=== PATIENT | female | born 1990 | race African-American/Black ===

== ENCOUNTER 2020-01-17 13:24 | Inpatient (IN) ==
[2020-01-17] MEDS ORDERED: OXYTOCIN 30 UNITS/500 ML BAG IV PRN (16:05)
--- NOTE | 2020-01-17 16:24 | History & Physical Report ---
Date of Service January 17, 2020 Assessment & Plan (1) IUGR (intrauterine growth restriction): 29 yo at 37.5 wks sent fro [facility] for IUGR, abn dopplers of UA, elevated S/D ratio VSS Afebrile FHR reassuring GBS neg Coronavirus unknown Plan to admit, monitor, labs, nasal swab Cervical ripening with Cervidil Patient declined drug use to me and but admitted to use 2 weeks ago to her nurse Agrees for UDS Admission and Anticipated Discharge Date Admission Date: January 17, 2020 History of Present Illness Primary Care Provider: NO PCP Patient is a 29 yo at 37.5 wks sent from [facility] for IOL at term due to IUGR, EFW 2nd %ile, UA S/D ratio elevated She has no complaints No ctxs/ LOF/VB +FM No MENDOZA/ change in vision/ N&V/ Fever/ chills/ cough or sore throat Her has been complicated IUGR, abn UA dopplers h/o smoking, quit 2 weeks ago Class III obesity Allergies Allergy/AdvReac Type Severity Reaction Status Date / Time No Known Allergies Allergy Verified 01/17/20 15:41 Home Medications Home Medications Medication Instructions Recorded Confirmed Type PNV cmb#95-ferrous fumarate-FA 1 tab PO DAILY 01/17/20 01/17/20 History [] Tylenol 1,000 mg PO DAILY 01/17/20 01/17/20 History Patient History Medical History No known health problems Surgical History H/O wisdom tooth extraction Social History Smoking Status: Never smoker Hx Alcohol Use: No Hx Substance Use: Yes Last Used Substance: Days (ago) Last Used Substance Other:: per patient used within the last 2 weeks. 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) Vital Signs (Past 12 Hours) Vital Signs Temp Pulse Resp BP 01/17/20 15:41 36.7 C 68 18 123/81 01/17/20 15:39 36.7 C 68 18 123/81
[2020-01-17] MEDS ORDERED: DINOPROSTONE 10 MG INSERT PV ONE (16:30)
[2020-01-17 16:39] LABS: Hemoglobin 12.1 g/dL (12.0-16.0); Mean Corpuscular Hemoglobin 27.4 pg (25-34); Mean Corpuscular Volume 83.7 fL (80-100); Mean Platelet Volume 9.8 fL (7.4-10.4); Platelet Count 170 K/uL (130-400); RDW Coefficient of Variation 13.6 % (11.5-14.5); RDW Standard Deviation 41.3 fL (36.4-46.3); Red Blood Count 4.42 M/uL (4.2-5.4); White Blood Count 7.15 K/uL (4.8-10.8)
[2020-01-17 16:40] LABS: Mean Corpuscular Hgb Conc 32.7 g/dL (32-36)
[2020-01-17 17:04] LABS: Albumin Level 2.3 gm/dl (3.4-5.0); BUN Creatinine Ratio 16.4 (10-20); Calcium 9.1 mg/dl (8.5-10.1); Creatinine Clr Calc Pharmacy 146.2 ml/min; Est GFR (African American) 108.9; Potassium 4.3 mmol/L (3.5-5.1)
[2020-01-17 17:07] LABS: Albumin Globulin Ratio 0.6 (0.9-2); Bilirubin,Total 0.2 mg/dl (0.2-1); Total Protein 6.3 gm/dl (6.4-8.2)
[2020-01-17 19:19] LABS: Amphetamines+Metham, Urine Neg (Neg); Barbiturates, Urine Neg (Neg); Benzodiazepine, Urine Neg (Neg); Cocaine, Urine Neg (Neg); MDMA (Ecstacy), Urine Neg (Neg); Methadone, Urine Neg (Neg); Opiate, Urine Neg (Neg); Phencyclidine, Urine Neg (Neg)
--- NOTE | 2020-01-17 19:35 | Anesthesiology Consultation ---
Date of Service January 17, 2020 Assessment & Plan ASA ASA3 Proposed Anesthesia Anesthesia Type: Labor Epidural Risk / Benefits Reviewed With: PT / POA / Parent / Guardian, Accepts Plan and Informed Consent Obtained History Height/Weight Height: 5 ft 9 in Weight: 136.531 kg Allergies Allergy/AdvReac Type Severity Reaction Status Date / Time No Known Allergies Allergy Verified 01/17/20 15:41 Medications Home Medications Medication Instructions Recorded Confirmed Last Taken PNV cmb#95-ferrous fumarate-FA 1 tab PO DAILY 01/17/20 01/17/20 01/17/20 07:00 [] Tylenol 1,000 mg PO DAILY 01/17/20 01/17/20 01/17/20 07:00 Past Medical History Medical History No known health problems Exercise / Class Metabolic Activity II 4-5 Yardwork/Stairs/Walk up hill Past Surgical History Surgical History H/O wisdom tooth extraction Past Anesthesia History No Hx of Anesthesia Complications and No Family Hx of Anesthesia Complications History of PONV No Hx of PONV and No Hx of Motion Sickness Social History Smoking Status: Never smoker Hx Alcohol Use: No Hx Substance Use: Yes substance use type: marijuana Last Used Substance: Days (ago) Last Used Substance Other:: per patient used within the last 2 weeks. Review of Systems denies fever/cough/ colds/ chest pain/ SOB/ IFEOMA denies IFEOMA Physical Exam Vital Signs Last Vital Signs Temp 36.6 C 01/17/20 19:47 Pulse 66 01/17/20 19:47 Resp 18 01/17/20 19:47 BP 125/75 01/17/20 19:47 ENMT Mouth: no TMJ abnormality and no dentition abnormality Thyromental Distance: > or= 3.5 Finger Breadths Mallampati Class: II Neck neck extension not limited Respiratory normal respiratory effort; no respiratory distress Auscultation: lungs clear to auscultation bilaterally Cardiovascular Rate/Rhythm: regular rate and regular rhythm Neurologic moves all extremities Psychiatric Orientation: alert and oriented x 3 Testing Laboratory Results 01/17/20 16:22 01/17/20 16:22
[2020-01-17] MEDS ORDERED: NALOXONE HCL 1 MG in SODIUM CHLORIDE 0.9% 1000ML 1,000 ML IV PRN (20:09)
[2020-01-17] MEDS ORDERED: fentaNYL 2MCG/ML ROPIVACAINE 1.25MG/ML 100 ML BAG EPI PRN (20:09)
[2020-01-17] MEDS ORDERED: ONDANSETRON INJ 2 MG/ML 2 ML VIAL IV PRN (20:09)
[2020-01-17] MEDS ORDERED: NALOXONE HCL 0.4 MG/1 ML VIAL/CARP IV PRN (20:09)
[2020-01-17] MEDS ORDERED: diphenhydrAMINE 50 MG/ML VIAL IV PRN (20:09)
[2020-01-17] MEDS ORDERED: ePHEDrine sulfate 50 MG/ML AMP IV PRN (20:09)
[2020-01-17] MEDS ORDERED: BUTORPHANOL TARTRATE 1 MG/ML VIAL IV PRN (23:19)
--- NOTE | 2020-01-17 23:22 | Obstetrical Progress Note ---
Date of Service January 17, 2020 Assessment & Plan Admission and Anticipated Discharge Date Admission Date: January 17, 2020 Subjective Patient is asleep FHR had been reassuring No ctxs Continue with cervical ripening Lab Results 01/17/20 01/17/20 01/17/20 Range/Units 16:20 16:20 16:22 WBC 7.15 (4.8-10.8) K/uL RBC 4.42 (4.2-5.4) M/uL Hgb 12.1 (12.0-16.0) g/dL Hct 37.0 (37-47) % MCV 83.7 (80-100) fL MCH 27.4 (25-34) pg MCHC 32.7 (32-36) g/dL RDW Std Deviation 41.3 (36.4-46.3) fL RDW Coeff of Naga 13.6 (11.5-14.5) % Plt Count 170 (130-400) K/uL MPV 9.8 (7.4-10.4) fL Sodium (136-145) mmol/L Potassium (3.5-5.1) mmol/L Chloride (98-107) mmol/L Carbon Dioxide (21-32) mmol/L Anion Gap (3-11) BUN (7-18) mg/dl Creatinine (0.6-1.2) mg/dl Est Cr Clr Drug Dosing ml/min Est GFR ( Amer) Est GFR (Non-Af Amer) BUN/Creatinine Ratio (10-20) Glucose (70-99) mg/dl Calcium (8.5-10.1) mg/dl Total Bilirubin (0.2-1) mg/dl AST (15-37) U/L ALT (12-78) U/L Alkaline Phosphatase (45-117) U/L Total Protein (6.4-8.2) gm/dl Albumin (3.4-5.0) gm/dl Globulin (2.5-4.0) gm/dl Albumin/Globulin Ratio (0.9-2) Urine Opiates Screen (Neg) Ur Methadone, Qual (Neg) Urine Barbiturates (Neg) Ur Phencyclidine (PCP) (Neg) U Amphetamin/Meth Scrn (Neg) MDMA (Ecstasy) Screen (Neg) U Benzodiazepines Scrn (Neg) Ur Cocaine Metabolite (Neg) U Marijuana (THC) Screen (Neg) COVID-19 [facility] SARS-CoV-2, RNA, NAAT NEGATIVE (NEGATIVE) 01/17/20 01/17/20 Range/Units 16:22 18:43 WBC (4.8-10.8) K/uL RBC (4.2-5.4) M/uL Hgb (12.0-16.0) g/dL Hct (37-47) % MCV (80-100) fL MCH (25-34) pg MCHC (32-36) g/dL RDW Std Deviation (36.4-46.3) fL RDW Coeff of Naga (11.5-14.5) % Plt Count (130-400) K/uL MPV (7.4-10.4) fL Sodium 138 (136-145) mmol/L Potassium 4.3 (3.5-5.1) mmol/L Chloride 110 H (98-107) mmol/L Carbon Dioxide 21 (21-32) mmol/L Anion Gap 6.0 (3-11) BUN 14 (7-18) mg/dl Creatinine 0.83 (0.6-1.2) mg/dl Est Cr Clr Drug Dosing 146.2 ml/min Est GFR ( Amer) 108.9 Est GFR (Non-Af Amer) 94.0 BUN/Creatinine Ratio 16.4 (10-20) Glucose 82 (70-99) mg/dl Calcium 9.1 (8.5-10.1) mg/dl Total Bilirubin 0.2 (0.2-1) mg/dl AST 10 L (15-37) U/L ALT 22 (12-78) U/L Alkaline Phosphatase 128 H (45-117) U/L Total Protein 6.3 L (6.4-8.2) gm/dl Albumin 2.3 L (3.4-5.0) gm/dl Globulin 4.0 (2.5-4.0) gm/dl Albumin/Globulin Ratio 0.6 L (0.9-2) Urine Opiates Screen Neg (Neg) Ur Methadone, Qual Neg (Neg) Urine Barbiturates Neg (Neg) Ur Phencyclidine (PCP) Neg (Neg) U Amphetamin/Meth Scrn Neg (Neg) MDMA (Ecstasy) Screen Neg (Neg) U Benzodiazepines Scrn Neg (Neg) Ur Cocaine Metabolite Neg (Neg) U Marijuana (THC) Screen Pos H (Neg) COVID-19 Eval Order SARS-CoV-2, RNA, NAAT (NEGATIVE) Results & Data ([facility]) Vital Signs (Past 12 Hours) Vital Signs Temp Pulse Resp BP 01/17/20 21:21 36.6 C 60 18 130/75 01/17/20 19:47 36.6 C 66 18 125/75 01/17/20 15:41 36.7 C 68 18 123/81 01/17/20 15:39 36.7 C 68 18 123/81
[2020-01-18] MEDS: LACTATED RINGER'S 1,000 ML IV PRN ×2 (00:56→04:18)
--- NOTE | 2020-01-18 07:47 | Obstetrical Progress Note ---
Date of Service January 18, 2020 Assessment & Plan Admission and Anticipated Discharge Date Admission Date: January 17, 2020 Subjective Patient feels well no complaints No ctxs/ LOF/VB +FM's VE 1CM/ 30%/ -4, posterior FHR 140's reactive [place] no ctxs Patient desires breakfast Will sign out to Dr Martinez Results & Data ([facility]) Vital Signs (Past 12 Hours) Vital Signs Temp Pulse Resp BP 01/18/20 07:29 67 118/63 01/18/20 03:40 36.7 C 70 18 131/78 01/18/20 00:04 36.6 C 60 18 131/82 01/17/20 21:21 36.6 C 60 18 130/75 01/17/20 19:47 36.6 C 66 18 125/75
[2020-01-18] MEDS ORDERED: DINOPROSTONE 10 MG INSERT PV ONE (10:49)
--- NOTE | 2020-01-18 11:10 | Obstetrical Progress Note ---
Date of Service January 18, 2020 Assessment & Plan Admission and Anticipated Discharge Date Admission Date: January 17, 2020 Physical Exam Genitourinary: Manual OB Exam: + cervical dilation fingertip, + cervical effacement 50% and + station high OB Exam Monitor Tracing: + category I (Cervidil 10 mg placed vaginally to continue cervical ripening) Results & Data ([facility]) Vital Signs (Past 12 Hours) Vital Signs Temp Pulse Resp BP 01/18/20 07:29 67 118/63 01/18/20 03:40 36.7 C 70 18 131/78 01/18/20 00:04 36.6 C 60 18 131/82
[2020-01-18] MEDS ORDERED: ONDANSETRON INJ 2 MG/ML 2 ML VIAL IV PRN (13:13)
[2020-01-18] MEDS ORDERED: ONDANSETRON INJ 2 MG/ML 2 ML VIAL ONE (13:14)
[2020-01-19] MEDS: miSOPROStoL 50 MCG TAB PO SCH ×2 (01:46→06:02)
--- NOTE | 2020-01-19 08:05 | Obstetrical Progress Note ---
Date of Service January 19, 2020 Assessment & Plan Admission and Anticipated Discharge Date Admission Date: January 17, 2020 Subjective Met pt and reviewed care Induction day #3 for IUGR Received Cytotec x 3 and Cervidil SROM this AM discussed Pitocin augmentation Pt is agreeable Results & Data ([facility]) Vital Signs (Past 12 Hours) Vital Signs Temp Pulse Resp BP 01/19/20 07:47 64 143/75 H 01/19/20 05:20 68 144/90 H 01/19/20 05:18 36.7 C 18 01/19/20 01:48 36.5 C 77 18 119/58 L 01/18/20 23:12 36.9 C 63 18 129/71
[2020-01-19] MEDS: LACTATED RINGER'S 1,000 ML IV PRN ×3 (09:46→16:02)
[2020-01-19] MEDS ORDERED: OXYTOCIN 30 UNITS/500 ML BAG IV PRN (09:52)
--- NOTE | 2020-01-19 10:08 | Obstetrical Progress Note ---
Date of Service January 19, 2020 Assessment & Plan Admission and Anticipated Discharge Date Admission Date: January 17, 2020 Subjective called to evaluate pt with variables Oxygen given position changes VE: 3/50/-2 No Umbilical cord palpated during exam Ctx 1-4 scalp electrode placed FH improved Results & Data ([facility]) Vital Signs (Past 12 Hours) Vital Signs Temp Pulse Resp BP 01/19/20 07:50 36.7 C 16 01/19/20 07:47 64 143/75 H 01/19/20 05:20 68 144/90 H 01/19/20 05:18 36.7 C 18 01/19/20 01:48 36.5 C 77 18 119/58 L 01/18/20 23:12 36.9 C 63 18 129/71
[2020-01-19] MEDS ORDERED: fentaNYL citrate 100 MCG/2 ML VIAL ONE ×3 (10:19→17:10)
[2020-01-19] MEDS ORDERED: SODIUM CHLORIDE 0.9% INJ 10 ML VIAL ONE (10:19)
[2020-01-19] MEDS ORDERED: BUPIVACAINE 0.25% 30 ML VIAL ONE (10:19)
[2020-01-19] MEDS ORDERED: ePHEDrine sulfate 50 MG/ML AMP ONE (10:19)
[2020-01-19] MEDS ORDERED: fentaNYL 2MCG/ML ROPIVACAINE 1.25MG/ML 100 ML BAG EPI ONE (10:20)
[2020-01-19] MEDS ORDERED: NALOXONE HCL 0.4 MG/1 ML VIAL/CARP IV PRN ×2 (11:10→20:15)
[2020-01-19] MEDS ORDERED: NALOXONE HCL 1 MG in SODIUM CHLORIDE 0.9% 1000ML 1,000 ML IV PRN ×2 (11:10→20:15)
[2020-01-19] MEDS ORDERED: ONDANSETRON INJ 2 MG/ML 2 ML VIAL IV PRN ×2 (11:10→18:18)
[2020-01-19] MEDS ORDERED: fentaNYL 2MCG/ML ROPIVACAINE 1.25MG/ML 100 ML BAG EPI PRN (11:10)
[2020-01-19] MEDS ORDERED: ePHEDrine sulfate 50 MG/ML AMP IV PRN ×2 (11:10→20:15)
[2020-01-19] MEDS ORDERED: diphenhydrAMINE 50 MG/ML VIAL IV PRN ×3 (11:10→20:15)
--- NOTE | 2020-01-19 11:10 | Anesthesiology Consultation ---
Date of Service January 19, 2020 Assessment & Plan (1) Encounter for pre-operative examination: Chart Review Chart Review: Patient NOT seen in Pre Admission Testing and Acceptable Risk for Labor Epidural Consults Requested none ASA ASA2 Proposed Anesthesia Anesthesia Type: Labor Epidural Risk / Benefits Reviewed With: PT / POA / Parent / Guardian, Accepts Plan and Informed Consent Obtained History Height/Weight Height: 5 ft 9 in Weight: 136.531 kg Allergies Allergy/AdvReac Type Severity Reaction Status Date / Time No Known Allergies Allergy Verified 01/17/20 15:41 Medications Home Medications Medication Instructions Recorded Confirmed Last Taken PNV cmb#95-ferrous fumarate-FA 1 tab PO DAILY 01/17/20 01/17/20 01/17/20 07:00 [] Tylenol 1,000 mg PO DAILY 01/17/20 01/17/20 01/17/20 07:00 Active Medications Generic Name Dose Route Start Last Admin Trade Name Freq PRN Reason Stop Dose Admin Lactated Ringer's 1,000 mls @ 125 mls/hr 01/17/20 16:05 01/19/20 10:04 Lr IV 01/19/20 16:04 999 mls/hr .Q8H PRN Infusion L&D Protocol Protocol Misoprostol 50 mcg 01/19/20 02:00 01/19/20 06:02 Misoprostol 50 Mcg Tab PO 02/18/20 01:59 50 mcg Q4H IVETTE Administration NPO Date Last Intake of Fluids: 01/19/20 Time Last Intake of Fluids: 06:00 Date Last Intake of Solids: 01/18/20 Time Last Intake of Solids: 21:00 Past Medical History Medical History No known health problems Exercise / Class Metabolic Activity II 4-5 Yardwork/Stairs/Walk up hill Past Surgical History Surgical History H/O wisdom tooth extraction Past Anesthesia History No Hx of Anesthesia Complications and No Family Hx of Anesthesia Complications History of PONV No Hx of PONV and No Hx of Motion Sickness Social History Smoking Status: Never smoker Hx Alcohol Use: No Hx Substance Use: Yes substance use type: marijuana Last Used Substance: Days (ago) Last Used Substance Other:: per patient used within the last 2 weeks. Physical Exam Vital Signs Last Vital Signs Temp 37.2 C 01/19/20 11:04 Pulse 64 01/19/20 11:07 Resp 22 01/19/20 09:30 BP 134/76 01/19/20 11:07 Pulse Ox 100 01/19/20 11:06 ENMT Mouth: no dentition abnormality Thyromental Distance: > or= 3.5 Finger Breadths Mallampati Class: II Neck normal visual inspection Respiratory normal respiratory effort Auscultation: lungs clear to auscultation bilaterally Cardiovascular Rate/Rhythm: regular rate and regular rhythm Psychiatric Orientation: alert Testing Laboratory Results 01/17/20 16:22 01/17/20 16:22
--- NOTE | 2020-01-19 12:27 | Obstetrical Progress Note ---
Date of Service January 19, 2020 Assessment & Plan Admission and Anticipated Discharge Date Admission Date: January 17, 2020 Subjective Called to evaluate pt with dc On arrival she was on her left side with oxygen FHR in the 80;s with scalp electrode VE; 3/50/high Ctx 3-4 fetus responded to scalp IVF inc to 999 Turb given fetus responded to scalp and return to 140 baseline OR Notified Plan discussed resuscitation with pt and spouse this was the second episode if it recurs will proceed to c/sec P and spouse agree with buckley Yun cath placed in bladder Results & Data ([facility]) Vital Signs (Past 12 Hours) Vital Signs Temp Pulse Resp BP Pulse Ox 01/19/20 12:17 94 H 100 01/19/20 12:12 98 H 100 01/19/20 12:08 144 H 161/104 H 01/19/20 12:07 98 H 100 01/19/20 12:01 77 100 01/19/20 11:57 83 93 01/19/20 11:56 67 100 01/19/20 11:54 70 161/93 H 01/19/20 11:51 71 100 01/19/20 11:49 66 111/75 01/19/20 11:48 60 142/72 H 01/19/20 11:46 71 100 01/19/20 11:41 66 100 01/19/20 11:36 60 139/68 100 01/19/20 11:31 62 100 01/19/20 11:29 62 133/77 01/19/20 11:26 59 L 134/68 100 01/19/20 11:21 69 148/81 H 100 01/19/20 11:16 63 100 01/19/20 11:14 66 135/62 01/19/20 11:11 70 100 01/19/20 11:09 65 135/75 01/19/20 11:07 64 134/76 01/19/20 11:06 64 100 01/19/20 11:05 61 136/74 01/19/20 11:04 37.2 C 71 154/79 H 01/19/20 11:01 69 100 01/19/20 10:56 84 100 01/19/20 10:51 69 100 01/19/20 10:46 73 100 01/19/20 10:41 75 100 01/19/20 10:36 79 100 01/19/20 10:31 64 100 01/19/20 09:30 36.7 C 22 01/19/20 07:50 36.7 C 16 01/19/20 07:47 64 143/75 H 01/19/20 05:20 68 144/90 H 01/19/20 05:18 36.7 C 18 01/19/20 01:48 36.5 C 77 18 119/58 L
[2020-01-19] MEDS ORDERED: TERBUTALINE SULFATE 1 MG/ML VIAL ONE (12:52)
--- NOTE | 2020-01-19 16:00 | Obstetrical Progress Note ---
Date of Service January 19, 2020 Assessment & Plan Admission and Anticipated Discharge Date Admission Date: January 17, 2020 Subjective Pt doing well CAT II strip VE; Unchanged discussed c/sec with pt pt agrees risk and benefits of surgery discussed consent signed will proceed to c/sec Results & Data ([facility]) Vital Signs (Past 12 Hours) Vital Signs Temp Pulse Resp BP Pulse Ox 01/19/20 15:57 72 98 01/19/20 15:53 78 141/81 H 01/19/20 15:52 79 98 01/19/20 15:47 75 97 01/19/20 15:42 85 96 01/19/20 15:41 75 94 01/19/20 15:37 71 110/64 96 01/19/20 15:32 71 96 01/19/20 15:27 73 96 01/19/20 15:23 74 115/68 01/19/20 15:22 73 98 01/19/20 15:17 72 97 01/19/20 15:12 81 98 01/19/20 15:08 74 115/68 01/19/20 15:07 73 99 01/19/20 15:02 84 99 01/19/20 14:59 36.8 C 16 01/19/20 14:57 80 100 01/19/20 14:52 71 139/79 99 01/19/20 14:47 91 H 100 01/19/20 14:42 76 100 01/19/20 14:38 75 128/74 01/19/20 14:37 74 100 01/19/20 14:32 80 100 01/19/20 14:27 77 100 01/19/20 14:24 77 121/75 01/19/20 14:22 78 100 01/19/20 14:17 79 100 01/19/20 14:12 80 100 01/19/20 14:07 78 117/70 100 01/19/20 14:02 79 100 01/19/20 13:59 20 01/19/20 13:57 82 100 01/19/20 13:52 81 110/65 99 01/19/20 13:47 87 98 01/19/20 13:42 86 98 01/19/20 13:39 84 122/75 01/19/20 13:37 90 100 01/19/20 13:32 87 100 01/19/20 13:27 93 H 100 01/19/20 13:23 93 H 131/76 01/19/20 13:22 89 100 01/19/20 13:17 84 100 01/19/20 13:12 101 H 100 01/19/20 13:07 87 129/66 100 01/19/20 13:02 36.8 C 91 H 16 100 01/19/20 12:57 85 100 01/19/20 12:52 85 139/66 100 01/19/20 12:47 88 100 01/19/20 12:42 85 100 01/19/20 12:38 89 134/60 01/19/20 12:37 93 H 100 01/19/20 12:32 113 H 100 01/19/20 12:27 85 100 01/19/20 12:23 90 135/88 01/19/20 12:22 89 100 01/19/20 12:17 94 H 100 01/19/20 12:12 98 H 100 01/19/20 12:11 20 01/19/20 12:08 144 H 161/104 H 01/19/20 12:07 98 H 100 01/19/20 12:01 77 100 01/19/20 11:57 83 93 01/19/20 11:56 67 100 01/19/20 11:54 70 161/93 H 01/19/20 11:51 71 100 01/19/20 11:49 66 111/75 01/19/20 11:48 60 142/72 H 01/19/20 11:46 71 100 01/19/20 11:41 66 100 01/19/20 11:36 60 139/68 100 01/19/20 11:31 62 100 01/19/20 11:29 62 133/77 01/19/20 11:26 59 L 134/68 100 01/19/20 11:21 69 148/81 H 100 01/19/20 11:16 63 100 01/19/20 11:14 66 135/62 01/19/20 11:11 70 100 01/19/20 11:09 65 135/75 01/19/20 11:07 64 134/76 01/19/20 11:06 64 100 01/19/20 11:05 61 136/74 01/19/20 11:04 37.2 C 71 154/79 H 01/19/20 11:01 69 100 01/19/20 10:56 84 100 01/19/20 10:51 69 100 01/19/20 10:46 73 100 01/19/20 10:41 75 100 01/19/20 10:36 79 100 01/19/20 10:31 64 100 01/19/20 09:30 36.7 C 22 01/19/20 07:50 36.7 C 16 01/19/20 07:47 64 143/75 H 01/19/20 05:20 68 144/90 H 01/19/20 05:18 36.7 C 18
[2020-01-19] MEDS ORDERED: CITRIC ACID/SODIUM CITRATE 15 ML UDC PO SCH (16:15)
[2020-01-19] MEDS ORDERED: MoRPHine SULFATE PF 1 MG/ML 10 ML AMP/VIAL ONE (16:17)
[2020-01-19] MEDS ORDERED: LIDOCAINE/EPINEPHRINE 2% 1:200,000 20 ML SDV ONE (16:20)
[2020-01-19] MEDS ORDERED: OXYTOCIN 10 UNITS/ML VIAL ONE ×2 (16:20→16:29)
--- NOTE | 2020-01-19 16:22 | Communication Note ---
Date of Service: January 19, 2020 cessarian section called by OB for intol to labor. epidural working well, will use this for c section
[2020-01-19 16:23] LABS: Basophils # (auto) 0.01 K/uL (0-0.2); Basophils % (auto) 0.1 %; Eosinophils # (auto) 0.01 K/uL (0-0.5); Eosinophils % (auto) 0.1 %; Hematocrit (blood only) 36.2 % (37-47); Hemoglobin 12.1 g/dL (12.0-16.0); Immature Granulocytes # (auto) 0.03 K/uL (0.00-0.02); Immature Granulocytes % (auto) 0.3 %; Lymphocytes # (auto) 1.86 K/uL (1.2-3.4); Lymphocytes % (auto) 16.9 %; Mean Corpuscular Hemoglobin 27.6 pg (25-34); Mean Corpuscular Volume 82.5 fL (80-100); Mean Platelet Volume 9.9 fL (7.4-10.4); Monocytes # (auto) 0.84 K/uL (0.11-0.59); Monocytes % (auto) 7.7 %; Neutrophils # (auto) 8.23 K/uL (1.4-6.5); Neutrophils % (auto) 74.9 %; Platelet Count 162 K/uL (130-400); RDW Coefficient of Variation 13.5 % (11.5-14.5); RDW Standard Deviation 40.8 fL (36.4-46.3); Red Blood Count 4.39 M/uL (4.2-5.4); White Blood Count 10.98 K/uL (4.8-10.8)
[2020-01-19 16:31] LABS: Mean Corpuscular Hgb Conc 33.4 g/dL (32-36)
[2020-01-19] MEDS ORDERED: miSOPROStoL 200 MCG TAB ONE (16:58)
[2020-01-19] MEDS ORDERED: KETOROLAC 30 MG/ML VIAL ONE (17:27)
[2020-01-19] MEDS ORDERED: ONDANSETRON INJ 2 MG/ML 2 ML VIAL ONE (17:34)
[2020-01-19] MEDS ORDERED: PROMETHAZINE HCL 25 MG in SODIUM CHLORIDE 0.9% 50 ML IV PRN (18:18)
[2020-01-19] MEDS ORDERED: SENNA 8.6 MG TAB PO PRN (18:18)
[2020-01-19] MEDS ORDERED: DIPHTHERIA/TETANUS/PERTUSSIS 0.5 ML SYR/VIAL IM ONE (18:18)
[2020-01-19] MEDS ORDERED: HYDROCORTISONE ACETATE 25 MG SUPP PR PRN (18:18)
[2020-01-19] MEDS ORDERED: SUPERCREAM 0.870% 15 GM JAR EXT PRN (18:18)
[2020-01-19] MEDS ORDERED: MAGNESIUM HYDROXIDE SUSP 30 ML UDC PO PRN (18:18)
[2020-01-19] MEDS ORDERED: diphenhydrAMINE Capsule 25 MG CAP PO PRN (18:18)
[2020-01-19] MEDS ORDERED: BENZOCAINE 20% AER SPR 82.5 GM CAN EXT PRN (18:18)
--- NOTE | 2020-01-19 18:22 | Post Operative Brief Note ---
Immediate Post Op Note v1 Date of Surgery January 19, 2020 Pre & Post Diagnosis Operation Date: 01/19/20 16:30 <No data on this case meets the specified criteria> I identified the patient and participated in the time-out.: Yes Procedure Operation Date: 01/19/20 16:30 <No data on this case meets the specified criteria> Surgeon Saad Morales MD Methodologist tom Estimated Blood Loss 500 Findings Consistent with Post-Op Diagnosis
[2020-01-19] MEDS ORDERED: LACTATED RINGER'S 1,000 ML IV SCH (18:30)
[2020-01-19 18:31] LABS: Base Excess Cord Venous Blood -3.8 mEq/L (-7.7-1.9); Cord Venous Blood HCO3 22 mmol/L (18.4-26.8); Cord Venous Blood PCO2 41 mmHg (30.4-57.2); Cord Venous Blood PO2 23 mmHg (14.1-43.3); Cord Venous Blood pH 7.34 (7.20-7.44)
[2020-01-19 18:38] LABS: Base Excess Cord Arterial Bld -3.3 mEq/L (-9-1.8); CO2 Cord Arterial Blood 49 mmHg (39.1-73.5); HCO3 Cord Arterial Blood 24 mmol/L (19.7-28.5); PO2 Cord Arterial Blood 13 mmHg (4.1-31.7)
[2020-01-19 18:41] LABS: O2 Saturation Cord Venous Bld < 60.0 % (<68)
[2020-01-19 18:43] LABS: Oxygen Sat Cord Arterial Blood < 60.0 % (<60)
--- NOTE | 2020-01-19 19:23 | Operative Report (OR) ---
DATE OF OPERATION: 01/19/2020 INDICATION FOR SURGERY: This is a 29-year-old G4, P3 with at term with IUGR. The patient underwent induction of labor x3 days. She dilated to 3 cm and fetus began to experience intolerance to labor. Fetus had 2 episodes of spontaneous decelerations, which required resuscitation. Fetus also now experiencing repetitive deep variables with late decelerations. Decision was therefore made to perform a section. The patient agreed, consent was signed. The patient went on to have a section. PREOPERATIVE DIAGNOSES: 1. at term. 2. Intrauterine growth restriction. 3. intolerance to labor. POSTOPERATIVE DIAGNOSES: 1. at term. 2. Intrauterine growth restriction. 3. intolerance to labor. PROCEDURE: section. SURGEON: Saad Morales MD. RN SCHOOL: Vishal Martinez MD. ANESTHESIA: Epidural. ESTIMATED BLOOD LOSS: 500 mL. INTRAVENOUS FLUIDS: 1600 mL. URINE OUTPUT: 400 mL of clear urine at the end of the procedure. FINDINGS: Live in cephalic presentation with 2 nuchal cords. Both of these were tight nuchal cords. Uterus, adnexa appeared grossly normal. Rest of the abdominal pelvic exam is unremarkable. COMPLICATIONS: None. DRAINS: Yun catheter. PATHOLOGY: Placenta, cord blood and cord gas. DISPOSITION: Stable to recovery room. DESCRIPTION OF PROCEDURE: The patient was taken to the operating room where she was prepped and draped in normal sterile fashion. Timeout was called. A Pfannenstiel incision was made and carried down to the fascia. Fascia was incised in the midline and extended laterally on both sides. Fascia was sharply dissected off the rectus abdominus muscle. Peritoneum was identified and entered sharply. An Damien retractor was placed in the abdomen, a transverse incision was made on the uterus after the vesicouterine peritoneum was sharply dissected off the lower segment of the uterus. was delivered. A nuchal cord x2 was reduced. Cord was clamped and cut and handed over to the pediatric team. Details of is in the pediatric record. Placenta was manually removed after cord gases obtained. Uterus was closed in 2 layers with Vicryl stitch. There was good hemostasis. Copious amount of irrigation used to irrigate the abdomen. The Damien retractor was removed. Rectus abdominis muscle and peritoneum were loosely approximated with plain suture. Fascia was closed in a running fashion with PDS x2. SubQ space was reapproximated with plain suture and skin was closed with 4-0 Monocryl. All instruments were removed from the vagina and accounted for x2 including sponges, needles and retractors. The patient is stable in recovery. I attest to the content of the Intraoperative Record and any orders documented therein. Any exception s are noted below.
[2020-01-19 19:31] LABS: Marijuana Quant, GCMS Urine 649 ng/mL (<5)
[2020-01-19] MEDS ORDERED: SODIUM CHLORIDE 0.9% 1000ML 1,000 ML IV SCH (20:15)
[2020-01-19] MEDS ORDERED: PROMETHAZINE HCL 6.25 MG in SODIUM CHLORIDE 0.9% 50 ML IV PRN (20:15)
[2020-01-19] MEDS ORDERED: MoRPHine SULFATE PF 1 MG/ML 10 ML AMP/VIAL INT SPINAL ONE (20:15)
[2020-01-19] MEDS ORDERED: MoRPHine SULFATE 2 MG/ML CARP IV PRN (20:15)
[2020-01-19] MEDS ORDERED: HYDROmorphone INJ 0.5 MG/0.5 ML SYR IV PRN (20:15)
[2020-01-19] MEDS ORDERED: LACTATED RINGER'S 500 ML IV PRN (20:15)
[2020-01-19] MEDS ORDERED: NALOXONE HCL 0.08 MG in SYRINGE 1.8 ML IV PRN (20:15)
[2020-01-19] MEDS ORDERED: DC INTRASPINAL MORPHINE SCH (20:15)
[2020-01-19] MEDS ORDERED: NO NARCOTICS OR SEDATIVES SCH (20:15)
[2020-01-19] MEDS: MEPERIDINE HCL 25 MG/ML CARP/VIAL IV PRN (20:30)
[2020-01-19] MEDS: DOCUSATE SODIUM 100 MG CAP PO SCH (20:31)
[2020-01-19] MEDS: SIMETHICONE 80 MG CHEW PO SCH (20:31)
--- NOTE | 2020-01-19 20:36 | Anesthesiology Progress Note ---
Date of Service January 19, 2020 Anesthesia Post Procedure Vital Signs Vital Signs: Temp Pulse Resp BP Pulse Ox 01/19/20 20:04 64 135/78 01/19/20 20:01 72 98 01/19/20 19:56 70 99 01/19/20 19:54 70 141/77 H 01/19/20 19:51 64 97 01/19/20 19:46 65 97 01/19/20 19:44 62 142/77 H 01/19/20 19:41 65 100 01/19/20 19:36 70 98 01/19/20 19:34 64 132/70 01/19/20 19:33 16 01/19/20 19:31 69 98 01/19/20 19:26 68 98 01/19/20 19:24 69 146/83 H 01/19/20 19:21 70 96 01/19/20 19:16 74 96 01/19/20 19:15 77 94 01/19/20 19:14 78 154/81 H 01/19/20 19:11 84 96 01/19/20 19:06 74 96 01/19/20 19:04 80 149/83 H 01/19/20 19:03 36.6 C 16 01/19/20 19:01 84 95 01/19/20 18:56 82 144/70 H 96 01/19/20 18:53 20 01/19/20 18:49 90 87 L 01/19/20 18:46 89 90 01/19/20 18:44 80 142/65 H 99 01/19/20 18:43 20 01/19/20 18:39 82 100 01/19/20 18:34 90 151/87 H 97 01/19/20 18:33 20 01/19/20 18:29 89 100 01/19/20 18:28 81 93 01/19/20 18:24 83 151/87 H 98 01/19/20 18:23 20 01/19/20 18:22 82 90 01/19/20 18:19 84 100 01/19/20 18:14 81 151/86 H 100 01/19/20 18:13 20 01/19/20 18:11 88 91 01/19/20 18:09 75 63 L 01/19/20 18:05 78 146/79 H 93 01/19/20 18:04 78 99 01/19/20 18:03 37.1 C 20 01/19/20 16:31 76 99 01/19/20 16:26 72 100 01/19/20 16:24 73 123/73 01/19/20 16:21 69 97 01/19/20 16:16 73 99 01/19/20 16:15 82 93 01/19/20 16:11 75 100 01/19/20 16:09 81 133/103 H 01/19/20 16:02 78 98 01/19/20 15:57 72 98 01/19/20 15:53 78 141/81 H 01/19/20 15:52 79 98 01/19/20 15:47 75 97 01/19/20 15:42 85 96 01/19/20 15:41 75 94 01/19/20 15:37 71 110/64 96 01/19/20 15:32 71 96 01/19/20 15:27 73 96 01/19/20 15:23 74 115/68 01/19/20 15:22 73 98 01/19/20 15:17 72 97 01/19/20 15:12 81 98 01/19/20 15:08 74 115/68 01/19/20 15:07 73 99 01/19/20 15:02 84 99 01/19/20 14:59 36.8 C 16 01/19/20 14:57 80 100 01/19/20 14:52 71 139/79 99 01/19/20 14:47 91 H 100 01/19/20 14:42 76 100 01/19/20 14:38 75 128/74 01/19/20 14:37 74 100 01/19/20 14:32 80 100 01/19/20 14:27 77 100 01/19/20 14:24 77 121/75 01/19/20 14:22 78 100 01/19/20 14:17 79 100 01/19/20 14:12 80 100 01/19/20 14:07 78 117/70 100 01/19/20 14:02 79 100 01/19/20 13:59 20 01/19/20 13:57 82 100 01/19/20 13:52 81 110/65 99 01/19/20 13:47 87 98 01/19/20 13:42 86 98 01/19/20 13:39 84 122/75 01/19/20 13:37 90 100 01/19/20 13:32 87 100 01/19/20 13:27 93 H 100 01/19/20 13:23 93 H 131/76 01/19/20 13:22 89 100 01/19/20 13:17 84 100 01/19/20 13:12 101 H 100 01/19/20 13:07 87 129/66 100 01/19/20 13:02 36.8 C 91 H 16 100 01/19/20 12:57 85 100 01/19/20 12:52 85 139/66 100 01/19/20 12:47 88 100 01/19/20 12:42 85 100 01/19/20 12:38 89 134/60 01/19/20 12:37 93 H 100 01/19/20 12:32 113 H 100 01/19/20 12:27 85 100 01/19/20 12:23 90 135/88 01/19/20 12:22 89 100 01/19/20 12:17 94 H 100 01/19/20 12:12 98 H 100 01/19/20 12:11 20 01/19/20 12:08 144 H 161/104 H 01/19/20 12:07 98 H 100 01/19/20 12:01 77 100 01/19/20 11:57 83 93 01/19/20 11:56 67 100 01/19/20 11:54 70 161/93 H 01/19/20 11:51 71 100 01/19/20 11:49 66 111/75 01/19/20 11:48 60 142/72 H 01/19/20 11:46 71 100 01/19/20 11:41 66 100 01/19/20 11:36 60 139/68 100 01/19/20 11:31 62 100 01/19/20 11:29 62 133/77 01/19/20 11:26 59 L 134/68 100 01/19/20 11:21 69 148/81 H 100 01/19/20 11:16 63 100 01/19/20 11:14 66 135/62 01/19/20 11:11 70 100 01/19/20 11:09 65 135/75 01/19/20 11:07 64 134/76 01/19/20 11:06 64 100 01/19/20 11:05 61 136/74 01/19/20 11:04 37.2 C 71 154/79 H 01/19/20 11:01 69 100 01/19/20 10:56 84 100 01/19/20 10:51 69 100 01/19/20 10:46 73 100 01/19/20 10:41 75 100 01/19/20 10:36 79 100 01/19/20 10:31 64 100 01/19/20 09:30 36.7 C 22 01/19/20 07:50 36.7 C 16 01/19/20 07:47 64 143/75 H 01/19/20 05:20 68 144/90 H 01/19/20 05:18 36.7 C 18 01/19/20 01:48 36.5 C 77 18 119/58 L 01/18/20 23:12 36.9 C 63 18 129/71 Pain Intensity Abdomen: Pain Intensity: 6 Transfer of Care Handoff Completed per policy Notes Mental Status: alert / awake / arousable Patient Amnestic to Procedure: Yes Nausea / Vomiting: adequately controlled Pain: adequately controlled Airway Patency, RR, SpO2: stable & adequate BP & HR: stable & adequate Hydration State: stable & adequate Anesthetic Complications: no major complications apparent
[2020-01-19] MEDS: ONDANSETRON INJ 2 MG/ML 2 ML VIAL IV PRN (21:07)
[2020-01-20] MEDS: KETOROLAC 30 MG/ML VIAL IV PRN ×2 (01:53→09:52)
[2020-01-20] MEDS: OXYTOCIN 20 UNITS in LACTATED RINGER'S 1,000 ML IV SCH ×2 (01:54→09:40)
[2020-01-20 06:10] LABS: Basophils # (auto) 0.01 K/uL (0-0.2); Basophils % (auto) 0.1 %; Eosinophils # (auto) 0.01 K/uL (0-0.5); Eosinophils % (auto) 0.1 %; Hematocrit (blood only) 32.7 % (37-47); Hemoglobin 10.4 g/dL (12.0-16.0); Immature Granulocytes # (auto) 0.02 K/uL (0.00-0.02); Immature Granulocytes % (auto) 0.2 %; Lymphocytes # (auto) 1.78 K/uL (1.2-3.4); Mean Corpuscular Hemoglobin 26.7 pg (25-34); Mean Corpuscular Hgb Conc 31.8 g/dL (32-36); Mean Corpuscular Volume 84.1 fL (80-100); Mean Platelet Volume 10.4 fL (7.4-10.4); Monocytes # (auto) 1.09 K/uL (0.11-0.59); Monocytes % (auto) 10.4 %; Neutrophils # (auto) 7.59 K/uL (1.4-6.5); Neutrophils % (auto) 72.2 %; Platelet Count 166 K/uL (130-400); RDW Coefficient of Variation 13.6 % (11.5-14.5); RDW Standard Deviation 40.7 fL (36.4-46.3); Red Blood Count 3.89 M/uL (4.2-5.4)
[2020-01-20] MEDS: ONDANSETRON INJ 2 MG/ML 2 ML VIAL IV PRN (06:13)
[2020-01-20] MEDS: MEPERIDINE HCL 25 MG/ML CARP/VIAL IV PRN ×2 (06:16→06:27)
--- NOTE | 2020-01-20 09:48 | Obstetrical Progress Note ---
Date of Service January 20, 2020 Assessment & Plan Admission and Anticipated Discharge Date Admission Date: January 17, 2020 Subjective Patient is seen and examined. She feels well, no complaints. Pain is under control with IV meds. Not OOB yet Tolerating clear diet with out N&V Flatus neg BM neg Bleeding is minimal No fever/ chills/ CP/ SOB/ N&V/ Leg pain Breast feeding without problems Vital Signs Temp Pulse Resp BP Pulse Ox 01/20/20 07:20 16 96 01/20/20 06:25 16 96 01/20/20 05:35 16 99 01/20/20 05:00 16 99 01/20/20 04:00 18 97 01/20/20 03:15 36.7 C 70 16 146/88 H 99 01/20/20 01:50 16 97 01/20/20 00:15 18 99 01/19/20 23:40 37.6 C H 64 18 141/89 H 100 01/19/20 22:35 18 97 Lab Results 01/17/20 01/17/20 01/17/20 Range/Units 16:20 16:20 16:22 WBC 7.15 (4.8-10.8) K/uL RBC 4.42 (4.2-5.4) M/uL Hgb 12.1 (12.0-16.0) g/dL Hct 37.0 (37-47) % MCV 83.7 (80-100) fL MCH 27.4 (25-34) pg MCHC 32.7 (32-36) g/dL RDW Std Deviation 41.3 (36.4-46.3) fL RDW Coeff of Naga 13.6 (11.5-14.5) % Plt Count 170 (130-400) K/uL MPV 9.8 (7.4-10.4) fL Immature Gran % (Auto) % Neut % (Auto) % Lymph % (Auto) % Gooding % (Auto) % Eos % (Auto) % Baso % (Auto) % Neut # (Auto) (1.4-6.5) K/uL Lymph # (Auto) (1.2-3.4) K/uL Gooding # (Auto) (0.11-0.59) K/uL Eos # (Auto) (0-0.5) K/uL Baso # (Auto) (0-0.2) K/uL Immature Gran # (Auto) (0.00-0.02) K/uL Cord ABG pH (7.1-7.38) Cord ABG pCO2 (39.1-73.5) mmHg Cord ABG pO2 (4.1-31.7) mmHg Cord ABG HCO3 (19.7-28.5) mmol/L Cord ABG Base Excess (-9-1.8) mEq/L Cord ABG O2 Sat (<60) % Cord VBG pH (7.20-7.44) Cord VBG pCO2 (30.4-57.2) mmHg Cord VBG pO2 (14.1-43.3) mmHg Cord VBG HCO3 (18.4-26.8) mmol/L Cord VBG Base Excess (-7.7-1.9) mEq/L Cord VBG O2 Sat (<68) % Barometric Pressure mm/Hg Blood Gas Comments Sodium (136-145) mmol/L Potassium (3.5-5.1) mmol/L Chloride (98-107) mmol/L Carbon Dioxide (21-32) mmol/L Anion Gap (3-11) BUN (7-18) mg/dl Creatinine (0.6-1.2) mg/dl Est Cr Clr Drug Dosing ml/min Est GFR ( Amer) Est GFR (Non-Af Amer) BUN/Creatinine Ratio (10-20) Glucose (70-99) mg/dl Calcium (8.5-10.1) mg/dl Total Bilirubin (0.2-1) mg/dl AST (15-37) U/L ALT (12-78) U/L Alkaline Phosphatase (45-117) U/L Total Protein (6.4-8.2) gm/dl Albumin (3.4-5.0) gm/dl Globulin (2.5-4.0) gm/dl Albumin/Globulin Ratio (0.9-2) Urine Opiates Screen (Neg) Ur Methadone, Qual (Neg) Urine Barbiturates (Neg) Ur Phencyclidine (PCP) (Neg) U Amphetamin/Meth Scrn (Neg) MDMA (Ecstasy) Screen (Neg) U Benzodiazepines Scrn (Neg) Ur Cocaine Metabolite (Neg) U Marijuana (THC) Screen (Neg) U Marijuana THC Carboxy (<5) ng/mL Drug Screen Comment [facility]19 [facility]-2, RNA, NAAT NEGATIVE (NEGATIVE) 01/17/20 01/17/20 01/17/20 Range/Units 16:22 18:43 18:43 WBC (4.8-10.8) K/uL RBC (4.2-5.4) M/uL Hgb (12.0-16.0) g/dL Hct (37-47) % MCV (80-100) fL MCH (25-34) pg MCHC (32-36) g/dL RDW Std Deviation (36.4-46.3) fL RDW Coeff of Naga (11.5-14.5) % Plt Count (130-400) K/uL MPV (7.4-10.4) fL Immature Gran % (Auto) % Neut % (Auto) % Lymph % (Auto) % Gooding % (Auto) % Eos % (Auto) % Baso % (Auto) % Neut # (Auto) (1.4-6.5) K/uL Lymph # (Auto) (1.2-3.4) K/uL Gooding # (Auto) (0.11-0.59) K/uL Eos # (Auto) (0-0.5) K/uL Baso # (Auto) (0-0.2) K/uL Immature Gran # (Auto) (0.00-0.02) K/uL Cord ABG pH (7.1-7.38) Cord ABG pCO2 (39.1-73.5) mmHg Cord ABG pO2 (4.1-31.7) mmHg Cord ABG HCO3 (19.7-28.5) mmol/L Cord ABG Base Excess (-9-1.8) mEq/L Cord ABG O2 Sat (<60) % Cord VBG pH (7.20-7.44) Cord VBG pCO2 (30.4-57.2) mmHg Cord VBG pO2 (14.1-43.3) mmHg Cord VBG HCO3 (18.4-26.8) mmol/L Cord VBG Base Excess (-7.7-1.9) mEq/L Cord VBG O2 Sat (<68) % Barometric Pressure mm/Hg Blood Gas Comments Sodium 138 (136-145) mmol/L Potassium 4.3 (3.5-5.1) mmol/L Chloride 110 H (98-107) mmol/L Carbon Dioxide 21 (21-32) mmol/L Anion Gap 6.0 (3-11) BUN 14 (7-18) mg/dl Creatinine 0.83 (0.6-1.2) mg/dl Est Cr Clr Drug Dosing 146.2 ml/min Est GFR ( Amer) 108.9 Est GFR (Non-Af Amer) 94.0 BUN/Creatinine Ratio 16.4 (10-20) Glucose 82 (70-99) mg/dl Calcium 9.1 (8.5-10.1) mg/dl Total Bilirubin 0.2 (0.2-1) mg/dl AST 10 L (15-37) U/L ALT 22 (12-78) U/L Alkaline Phosphatase 128 H (45-117) U/L Total Protein 6.3 L (6.4-8.2) gm/dl Albumin 2.3 L (3.4-5.0) gm/dl Globulin 4.0 (2.5-4.0) gm/dl Albumin/Globulin Ratio 0.6 L (0.9-2) Urine Opiates Screen Neg (Neg) Ur Methadone, Qual Neg (Neg) Urine Barbiturates Neg (Neg) Ur Phencyclidine (PCP) Neg (Neg) U Amphetamin/Meth Scrn Neg (Neg) MDMA (Ecstasy) Screen Neg (Neg) U Benzodiazepines Scrn Neg (Neg) Ur Cocaine Metabolite Neg (Neg) U Marijuana (THC) Screen Pos H (Neg) U Marijuana THC Carboxy 649 H (<5) ng/mL Drug Screen Comment SEE NOTE COVID-19 Eval Order SARS-CoV-2, RNA, NAAT (NEGATIVE) 01/19/20 01/19/20 01/19/20 Range/Units 16:11 17:08 17:08 WBC 10.98 H (4.8-10.8) K/uL RBC 4.39 (4.2-5.4) M/uL Hgb 12.1 (12.0-16.0) g/dL Hct 36.2 L (37-47) % MCV 82.5 (80-100) fL MCH 27.6 (25-34) pg MCHC 33.4 (32-36) g/dL RDW Std Deviation 40.8 (36.4-46.3) fL RDW Coeff of Anga 13.5 (11.5-14.5) % Plt Count 162 (130-400) K/uL MPV 9.9 (7.4-10.4) fL Immature Gran % (Auto) 0.3 % Neut % (Auto) 74.9 % Lymph % (Auto) 16.9 % Gooding % (Auto) 7.7 % Eos % (Auto) 0.1 % Baso % (Auto) 0.1 % Neut # (Auto) 8.23 H (1.4-6.5) K/uL Lymph # (Auto) 1.86 (1.2-3.4) K/uL Gooding # (Auto) 0.84 H (0.11-0.59) K/uL Eos # (Auto) 0.01 (0-0.5) K/uL Baso # (Auto) 0.01 (0-0.2) K/uL Immature Gran # (Auto) 0.03 H (0.00-0.02) K/uL Cord ABG pH 7.30 (7.1-7.38) Cord ABG pCO2 49 (39.1-73.5) mmHg Cord ABG pO2 13 (4.1-31.7) mmHg Cord ABG HCO3 24 (19.7-28.5) mmol/L Cord ABG Base Excess -3.3 (-9-1.8) mEq/L Cord ABG O2 Sat < 60.0 (<60) % Cord VBG pH 7.34 (7.20-7.44) Cord VBG pCO2 41 (30.4-57.2) mmHg Cord VBG pO2 23 (14.1-43.3) mmHg Cord VBG HCO3 22 (18.4-26.8) mmol/L Cord VBG Base Excess -3.8 (-7.7-1.9) mEq/L Cord VBG O2 Sat < 60.0 (<68) % Barometric Pressure 731.0 731.1 mm/Hg Blood Gas Comments A A Sodium (136-145) mmol/L Potassium (3.5-5.1) mmol/L Chloride (98-107) mmol/L Carbon Dioxide (21-32) mmol/L Anion Gap (3-11) BUN (7-18) mg/dl Creatinine (0.6-1.2) mg/dl Est Cr Clr Drug Dosing ml/min Est GFR ( Amer) Est GFR (Non-Af Amer) BUN/Creatinine Ratio (10-20) Glucose (70-99) mg/dl Calcium (8.5-10.1) mg/dl Total Bilirubin (0.2-1) mg/dl AST (15-37) U/L ALT (12-78) U/L Alkaline Phosphatase (45-117) U/L Total Protein (6.4-8.2) gm/dl Albumin (3.4-5.0) gm/dl Globulin (2.5-4.0) gm/dl Albumin/Globulin Ratio (0.9-2) Urine Opiates Screen (Neg) Ur Methadone, Qual (Neg) Urine Barbiturates (Neg) Ur Phencyclidine (PCP) (Neg) U Amphetamin/Meth Scrn (Neg) MDMA (Ecstasy) Screen (Neg) U Benzodiazepines Scrn (Neg) Ur Cocaine Metabolite (Neg) U Marijuana (THC) Screen (Neg) U Marijuana THC Carboxy (<5) ng/mL Drug Screen Comment COVID-19 Eval Order SARS-CoV-2, RNA, NAAT (NEGATIVE) 01/20/20 Range/Units 05:43 WBC 10.50 (4.8-10.8) K/uL RBC 3.89 L (4.2-5.4) M/uL Hgb 10.4 L (12.0-16.0) g/dL Hct 32.7 L (37-47) % MCV 84.1 (80-100) fL MCH 26.7 (25-34) pg MCHC 31.8 L (32-36) g/dL RDW Std Deviation 40.7 (36.4-46.3) fL RDW Coeff of Naga 13.6 (11.5-14.5) % Plt Count 166 (130-400) K/uL MPV 10.4 (7.4-10.4) fL Immature Gran % (Auto) 0.2 % Neut % (Auto) 72.2 % Lymph % (Auto) 17.0 % Gooding % (Auto) 10.4 % Eos % (Auto) 0.1 % Baso % (Auto) 0.1 % Neut # (Auto) 7.59 H (1.4-6.5) K/uL Lymph # (Auto) 1.78 (1.2-3.4) K/uL Gooding # (Auto) 1.09 H (0.11-0.59) K/uL Eos # (Auto) 0.01 (0-0.5) K/uL Baso # (Auto) 0.01 (0-0.2) K/uL Immature Gran # (Auto) 0.02 (0.00-0.02) K/uL Cord ABG pH (7.1-7.38) Cord ABG pCO2 (39.1-73.5) mmHg Cord ABG pO2 (4.1-31.7) mmHg Cord ABG HCO3 (19.7-28.5) mmol/L Cord ABG Base Excess (-9-1.8) mEq/L Cord ABG O2 Sat (<60) % Cord VBG pH (7.20-7.44) Cord VBG pCO2 (30.4-57.2) mmHg Cord VBG pO2 (14.1-43.3) mmHg Cord VBG HCO3 (18.4-26.8) mmol/L Cord VBG Base Excess (-7.7-1.9) mEq/L Cord VBG O2 Sat (<68) % Barometric Pressure mm/Hg Blood Gas Comments Sodium (136-145) mmol/L Potassium (3.5-5.1) mmol/L Chloride (98-107) mmol/L Carbon Dioxide (21-32) mmol/L Anion Gap (3-11) BUN (7-18) mg/dl Creatinine (0.6-1.2) mg/dl Est Cr Clr Drug Dosing ml/min Est GFR ( Amer) Est GFR (Non-Af Amer) BUN/Creatinine Ratio (10-20) Glucose (70-99) mg/dl Calcium (8.5-10.1) mg/dl Total Bilirubin (0.2-1) mg/dl AST (15-37) U/L ALT (12-78) U/L Alkaline Phosphatase (45-117) U/L Total Protein (6.4-8.2) gm/dl Albumin (3.4-5.0) gm/dl Globulin (2.5-4.0) gm/dl Albumin/Globulin Ratio (0.9-2) Urine Opiates Screen (Neg) Ur Methadone, Qual (Neg) Urine Barbiturates (Neg) Ur Phencyclidine (PCP) (Neg) U Amphetamin/Meth Scrn (Neg) MDMA (Ecstasy) Screen (Neg) U Benzodiazepines Scrn (Neg) Ur Cocaine Metabolite (Neg) U Marijuana (THC) Screen (Neg) U Marijuana THC Carboxy (<5) ng/mL Drug Screen Comment COVID-19 Eval Order SARS-CoV-2, RNA, NAAT (NEGATIVE) PE: General: Alert, orientedx3, NAD CVS: S1S2 RRR Lungs; CTAB Abd: soft, NT, ND, BS+, fundus firm, below Umbilicus Incision/ Dressing: Clean, dry, intact Perineum intact, Lochia rubra minimal Ext; NT, SCD' on, no edema AP: 29 yo s/p C Section, pod# 1 VSS Afebrile doing well Continue routine postop care Encourage ambulation, PO intake All questions were answered Results & Data ([facility]) Vital Signs (Past 12 Hours) Vital Signs Temp Pulse Resp BP Pulse Ox 01/20/20 07:20 16 96 01/20/20 06:25 16 96 01/20/20 05:35 16 99 01/20/20 05:00 16 99 01/20/20 04:00 18 97 01/20/20 03:15 36.7 C 70 16 146/88 H 99 01/20/20 01:50 16 97 01/20/20 00:15 18 99 01/19/20 23:40 37.6 C H 64 18 141/89 H 100 01/19/20 22:35 18 97
--- NOTE | 2020-01-20 10:31 | Anesthesiology Progress Note ---
Date of Service January 20, 2020 Anesthesia Post Procedure Vital Signs Vital Signs: Temp Pulse Pulse Resp BP BP Pulse Ox 01/20/20 07:20 16 96 01/20/20 06:25 16 96 01/20/20 05:35 16 99 01/20/20 05:00 16 99 01/20/20 04:00 18 97 01/20/20 03:15 36.7 C 70 16 146/88 H 99 01/20/20 01:50 16 97 01/20/20 00:15 18 99 01/19/20 23:40 37.6 C H 64 18 141/89 H 100 01/19/20 22:35 18 97 01/19/20 21:30 76 18 152/91 H 98 01/19/20 21:00 74 152/98 H 01/19/20 20:35 36.9 C 74 18 162/95 H 97 01/19/20 20:04 64 135/78 01/19/20 20:03 36.3 C L 16 01/19/20 20:01 72 98 01/19/20 19:56 70 99 01/19/20 19:54 70 141/77 H 01/19/20 19:51 64 97 01/19/20 19:46 65 97 01/19/20 19:44 62 142/77 H 01/19/20 19:41 65 100 01/19/20 19:36 70 98 01/19/20 19:34 64 132/70 01/19/20 19:33 16 01/19/20 19:31 69 98 01/19/20 19:26 68 98 01/19/20 19:24 69 146/83 H 01/19/20 19:21 70 96 01/19/20 19:16 74 96 01/19/20 19:15 77 94 01/19/20 19:14 78 154/81 H 01/19/20 19:11 84 96 01/19/20 19:06 74 96 01/19/20 19:04 80 149/83 H 01/19/20 19:03 36.6 C 16 01/19/20 19:01 84 95 01/19/20 18:56 82 144/70 H 96 01/19/20 18:53 20 01/19/20 18:49 90 87 L 01/19/20 18:46 89 90 01/19/20 18:44 80 142/65 H 99 01/19/20 18:43 20 01/19/20 18:39 82 100 01/19/20 18:34 90 151/87 H 97 01/19/20 18:33 20 01/19/20 18:29 89 100 01/19/20 18:28 81 93 01/19/20 18:24 83 151/87 H 98 01/19/20 18:23 20 01/19/20 18:22 82 90 01/19/20 18:19 84 100 01/19/20 18:14 81 151/86 H 100 01/19/20 18:13 20 01/19/20 18:11 88 91 01/19/20 18:09 75 63 L 01/19/20 18:05 78 146/79 H 93 01/19/20 18:04 78 99 01/19/20 18:03 37.1 C 20 01/19/20 16:31 76 99 01/19/20 16:26 72 100 01/19/20 16:24 73 123/73 01/19/20 16:21 69 97 01/19/20 16:16 73 99 01/19/20 16:15 82 93 01/19/20 16:11 75 100 01/19/20 16:09 81 133/103 H 01/19/20 16:02 78 98 01/19/20 15:57 72 98 01/19/20 15:53 78 141/81 H 01/19/20 15:52 79 98 01/19/20 15:47 75 97 01/19/20 15:42 85 96 01/19/20 15:41 75 94 01/19/20 15:37 71 110/64 96 01/19/20 15:32 71 96 01/19/20 15:27 73 96 01/19/20 15:23 74 115/68 01/19/20 15:22 73 98 01/19/20 15:17 72 97 01/19/20 15:12 81 98 01/19/20 15:08 74 115/68 01/19/20 15:07 73 99 01/19/20 15:02 84 99 01/19/20 14:59 36.8 C 16 01/19/20 14:57 80 100 01/19/20 14:52 71 139/79 99 01/19/20 14:47 91 H 100 01/19/20 14:42 76 100 01/19/20 14:38 75 128/74 01/19/20 14:37 74 100 01/19/20 14:32 80 100 01/19/20 14:27 77 100 01/19/20 14:24 77 121/75 01/19/20 14:22 78 100 01/19/20 14:17 79 100 01/19/20 14:12 80 100 01/19/20 14:07 78 117/70 100 01/19/20 14:02 79 100 01/19/20 13:59 20 01/19/20 13:57 82 100 01/19/20 13:52 81 110/65 99 01/19/20 13:47 87 98 01/19/20 13:42 86 98 01/19/20 13:39 84 122/75 01/19/20 13:37 90 100 01/19/20 13:32 87 100 01/19/20 13:27 93 H 100 01/19/20 13:23 93 H 131/76 01/19/20 13:22 89 100 01/19/20 13:17 84 100 01/19/20 13:12 101 H 100 01/19/20 13:07 87 129/66 100 01/19/20 13:02 36.8 C 91 H 16 100 01/19/20 12:57 85 100 01/19/20 12:52 85 139/66 100 01/19/20 12:47 88 100 01/19/20 12:42 85 100 01/19/20 12:38 89 134/60 01/19/20 12:37 93 H 100 01/19/20 12:32 113 H 100 01/19/20 12:27 85 100 01/19/20 12:23 90 135/88 01/19/20 12:22 89 100 01/19/20 12:17 94 H 100 01/19/20 12:12 98 H 100 01/19/20 12:11 20 01/19/20 12:08 144 H 161/104 H 01/19/20 12:07 98 H 100 01/19/20 12:01 77 100 01/19/20 11:57 83 93 01/19/20 11:56 67 100 01/19/20 11:54 70 161/93 H 01/19/20 11:51 71 100 01/19/20 11:49 66 111/75 01/19/20 11:48 60 142/72 H 01/19/20 11:46 71 100 01/19/20 11:41 66 100 01/19/20 11:36 60 139/68 100 01/19/20 11:31 62 100 01/19/20 11:29 62 133/77 01/19/20 11:26 59 L 134/68 100 01/19/20 11:21 69 148/81 H 100 01/19/20 11:16 63 100 01/19/20 11:14 66 135/62 01/19/20 11:11 70 100 01/19/20 11:09 65 135/75 01/19/20 11:07 64 134/76 01/19/20 11:06 64 100 01/19/20 11:05 61 136/74 01/19/20 11:04 37.2 C 71 154/79 H 01/19/20 11:01 69 100 01/19/20 10:56 84 100 01/19/20 10:51 69 100 01/19/20 10:46 73 100 01/19/20 10:41 75 100 01/19/20 10:36 79 100 01/19/20 10:31 64 100 Pain Intensity Abdomen: Pain Intensity: 5 Transfer of Care Handoff Completed per policy Notes Mental Status: alert / awake / arousable and participated in evaluation Patient Amnestic to Procedure: Yes Nausea / Vomiting: adequately controlled Pain: adequately controlled Airway Patency, RR, SpO2: stable & adequate BP & HR: stable & adequate Hydration State: stable & adequate Anesthetic Complications: no major complications apparent and Pt Satisfied with anesthetic care
[2020-01-20] MEDS: SIMETHICONE 80 MG CHEW PO SCH ×4 (10:35→20:37)
[2020-01-20] MEDS: PRENATAL VITAMIN 1 TAB PO SCH (10:35)
[2020-01-20] MEDS: FERROUS SULFATE 325 MG TAB PO SCH (10:35)
[2020-01-20] MEDS: IBUPROFEN 600 MG TAB PO PRN ×2 (16:01→20:33)
[2020-01-20] MEDS: oxyCODONE/ACETAMINOPHEN 5mg/325mg TAB PO PRN ×2 (16:01→20:33)
[2020-01-20] MEDS: DOCUSATE SODIUM 100 MG CAP PO SCH (16:58)
[2020-01-20] MEDS ORDERED: bisacodyL 5 MG TABEC PO SCH (20:00)
[2020-01-21] MEDS: oxyCODONE/ACETAMINOPHEN 5mg/325mg TAB PO PRN ×6 (00:29→22:14)
[2020-01-21] MEDS: IBUPROFEN 600 MG TAB PO PRN ×6 (00:29→22:14)
[2020-01-21 06:29] LABS: Hematocrit (blood only) 32.5 % (37-47); Hemoglobin 10.8 g/dL (12.0-16.0)
[2020-01-21] MEDS: FERROUS SULFATE 325 MG TAB PO SCH (09:40)
[2020-01-21] MEDS: DOCUSATE SODIUM 100 MG CAP PO SCH ×2 (09:40→22:14)
[2020-01-21] MEDS: SIMETHICONE 80 MG CHEW PO SCH ×4 (09:40→22:14)
[2020-01-21] MEDS: PRENATAL VITAMIN 1 TAB PO SCH (09:40)
--- NOTE | 2020-01-21 10:31 | Obstetrical Progress Note ---
Date of Service January 21, 2020 Assessment & Plan Admission and Anticipated Discharge Date Admission Date: January 17, 2020 Subjective Patient is seen and examined. She feels well, no complaints. Pain is under control with oral meds. Ambulating without dizziness Voiding without difficulty Tolerating regular diet with out N&V Flatus + BM neg Bleeding is minimal No fever/ chills/MENDOZA/ Change in vision/ CP/ SOB/ N&V/ Leg pain Breast feeding without problems Vital Signs Temp Pulse Resp BP 01/21/20 05:00 65 131/86 01/20/20 23:30 36.8 C 70 18 150/96 H Lab Results 01/17/20 01/17/20 01/17/20 Range/Units 16:20 16:20 16:22 WBC 7.15 (4.8-10.8) K/uL RBC 4.42 (4.2-5.4) M/uL Hgb 12.1 (12.0-16.0) g/dL Hct 37.0 (37-47) % MCV 83.7 (80-100) fL MCH 27.4 (25-34) pg MCHC 32.7 (32-36) g/dL RDW Std Deviation 41.3 (36.4-46.3) fL RDW Coeff of Naga 13.6 (11.5-14.5) % Plt Count 170 (130-400) K/uL MPV 9.8 (7.4-10.4) fL Immature Gran % (Auto) % Neut % (Auto) % Lymph % (Auto) % [place] % (Auto) % Eos % (Auto) % Baso % (Auto) % Neut # (Auto) (1.4-6.5) K/uL Lymph # (Auto) (1.2-3.4) K/uL [place] # (Auto) (0.11-0.59) K/uL Eos # (Auto) (0-0.5) K/uL Baso # (Auto) (0-0.2) K/uL Immature Gran # (Auto) (0.00-0.02) K/uL Cord ABG pH (7.1-7.38) Cord ABG pCO2 (39.1-73.5) mmHg Cord ABG pO2 (4.1-31.7) mmHg Cord ABG HCO3 (19.7-28.5) mmol/L Cord ABG Base Excess (-9-1.8) mEq/L Cord ABG O2 Sat (<60) % Cord VBG pH (7.20-7.44) Cord VBG pCO2 (30.4-57.2) mmHg Cord VBG pO2 (14.1-43.3) mmHg Cord VBG HCO3 (18.4-26.8) mmol/L Cord VBG Base Excess (-7.7-1.9) mEq/L Cord VBG O2 Sat (<68) % Barometric Pressure mm/Hg Blood Gas Comments Sodium (136-145) mmol/L Potassium (3.5-5.1) mmol/L Chloride (98-107) mmol/L Carbon Dioxide (21-32) mmol/L Anion Gap (3-11) BUN (7-18) mg/dl Creatinine (0.6-1.2) mg/dl Est Cr Clr Drug Dosing ml/min Est GFR ( Amer) Est GFR (Non-Af Amer) BUN/Creatinine Ratio (10-20) Glucose (70-99) mg/dl Calcium (8.5-10.1) mg/dl Total Bilirubin (0.2-1) mg/dl AST (15-37) U/L ALT (12-78) U/L Alkaline Phosphatase (45-117) U/L Total Protein (6.4-8.2) gm/dl Albumin (3.4-5.0) gm/dl Globulin (2.5-4.0) gm/dl Albumin/Globulin Ratio (0.9-2) Urine Opiates Screen (Neg) Ur Methadone, Qual (Neg) Urine Barbiturates (Neg) Ur Phencyclidine (PCP) (Neg) U Amphetamin/Meth Scrn (Neg) MDMA (Ecstasy) Screen (Neg) U Benzodiazepines Scrn (Neg) Ur Cocaine Metabolite (Neg) U Marijuana (THC) Screen (Neg) U Marijuana THC Carboxy (<5) ng/mL Drug Screen Comment COVID-19 Eval [facility] SARS-CoV-2, RNA, NAAT NEGATIVE (NEGATIVE) 01/17/20 01/17/20 01/17/20 Range/Units 16:22 18:43 18:43 WBC (4.8-10.8) K/uL RBC (4.2-5.4) M/uL Hgb (12.0-16.0) g/dL Hct (37-47) % MCV (80-100) fL MCH (25-34) pg MCHC (32-36) g/dL RDW Std Deviation (36.4-46.3) fL RDW Coeff of Naga (11.5-14.5) % Plt Count (130-400) K/uL MPV (7.4-10.4) fL Immature Gran % (Auto) % Neut % (Auto) % Lymph % (Auto) % [place] % (Auto) % Eos % (Auto) % Baso % (Auto) % Neut # (Auto) (1.4-6.5) K/uL Lymph # (Auto) (1.2-3.4) K/uL [place] # (Auto) (0.11-0.59) K/uL Eos # (Auto) (0-0.5) K/uL Baso # (Auto) (0-0.2) K/uL Immature Gran # (Auto) (0.00-0.02) K/uL Cord ABG pH (7.1-7.38) Cord ABG pCO2 (39.1-73.5) mmHg Cord ABG pO2 (4.1-31.7) mmHg Cord ABG HCO3 (19.7-28.5) mmol/L Cord ABG Base Excess (-9-1.8) mEq/L Cord ABG O2 Sat (<60) % Cord VBG pH (7.20-7.44) Cord VBG pCO2 (30.4-57.2) mmHg Cord VBG pO2 (14.1-43.3) mmHg Cord VBG HCO3 (18.4-26.8) mmol/L Cord VBG Base Excess (-7.7-1.9) mEq/L Cord VBG O2 Sat (<68) % Barometric Pressure mm/Hg Blood Gas Comments Sodium 138 (136-145) mmol/L Potassium 4.3 (3.5-5.1) mmol/L Chloride 110 H (98-107) mmol/L Carbon Dioxide 21 (21-32) mmol/L Anion Gap 6.0 (3-11) BUN 14 (7-18) mg/dl Creatinine 0.83 (0.6-1.2) mg/dl Est Cr Clr Drug Dosing 146.2 ml/min Est GFR ( Amer) 108.9 Est GFR (Non-Af Amer) 94.0 BUN/Creatinine Ratio 16.4 (10-20) Glucose 82 (70-99) mg/dl Calcium 9.1 (8.5-10.1) mg/dl Total Bilirubin 0.2 (0.2-1) mg/dl AST 10 L (15-37) U/L ALT 22 (12-78) U/L Alkaline Phosphatase 128 H (45-117) U/L Total Protein 6.3 L (6.4-8.2) gm/dl Albumin 2.3 L (3.4-5.0) gm/dl Globulin 4.0 (2.5-4.0) gm/dl Albumin/Globulin Ratio 0.6 L (0.9-2) Urine Opiates Screen Neg (Neg) Ur Methadone, Qual Neg (Neg) Urine Barbiturates Neg (Neg) Ur Phencyclidine (PCP) Neg (Neg) U Amphetamin/Meth Scrn Neg (Neg) MDMA (Ecstasy) Screen Neg (Neg) U Benzodiazepines Scrn Neg (Neg) Ur Cocaine Metabolite Neg (Neg) U Marijuana (THC) Screen Pos H (Neg) U Marijuana THC Carboxy 649 H (<5) ng/mL Drug Screen Comment SEE NOTE COVID-19 Eval Order SARS-CoV-2, RNA, NAAT (NEGATIVE) 01/19/20 01/19/20 01/19/20 Range/Units 16:11 17:08 17:08 WBC 10.98 H (4.8-10.8) K/uL RBC 4.39 (4.2-5.4) M/uL Hgb 12.1 (12.0-16.0) g/dL Hct 36.2 L (37-47) % MCV 82.5 (80-100) fL MCH 27.6 (25-34) pg MCHC 33.4 (32-36) g/dL RDW Std Deviation 40.8 (36.4-46.3) fL RDW Coeff of Naga 13.5 (11.5-14.5) % Plt Count 162 (130-400) K/uL MPV 9.9 (7.4-10.4) fL Immature Gran % (Auto) 0.3 % Neut % (Auto) 74.9 % Lymph % (Auto) 16.9 % [place] % (Auto) 7.7 % Eos % (Auto) 0.1 % Baso % (Auto) 0.1 % Neut # (Auto) 8.23 H (1.4-6.5) K/uL Lymph # (Auto) 1.86 (1.2-3.4) K/uL [place] # (Auto) 0.84 H (0.11-0.59) K/uL Eos # (Auto) 0.01 (0-0.5) K/uL Baso # (Auto) 0.01 (0-0.2) K/uL Immature Gran # (Auto) 0.03 H (0.00-0.02) K/uL Cord ABG pH 7.30 (7.1-7.38) Cord ABG pCO2 49 (39.1-73.5) mmHg Cord ABG pO2 13 (4.1-31.7) mmHg Cord ABG HCO3 24 (19.7-28.5) mmol/L Cord ABG Base Excess -3.3 (-9-1.8) mEq/L Cord ABG O2 Sat < 60.0 (<60) % Cord VBG pH 7.34 (7.20-7.44) Cord VBG pCO2 41 (30.4-57.2) mmHg Cord VBG pO2 23 (14.1-43.3) mmHg Cord VBG HCO3 22 (18.4-26.8) mmol/L Cord VBG Base Excess -3.8 (-7.7-1.9) mEq/L Cord VBG O2 Sat < 60.0 (<68) % Barometric Pressure 731.0 731.1 mm/Hg Blood Gas Comments INFANT A INFANT A Sodium (136-145) mmol/L Potassium (3.5-5.1) mmol/L Chloride (98-107) mmol/L Carbon Dioxide (21-32) mmol/L Anion Gap (3-11) BUN (7-18) mg/dl Creatinine (0.6-1.2) mg/dl Est Cr Clr Drug Dosing ml/min Est GFR ( Amer) Est GFR (Non-Af Amer) BUN/Creatinine Ratio (10-20) Glucose (70-99) mg/dl Calcium (8.5-10.1) mg/dl Total Bilirubin (0.2-1) mg/dl AST (15-37) U/L ALT (12-78) U/L Alkaline Phosphatase (45-117) U/L Total Protein (6.4-8.2) gm/dl Albumin (3.4-5.0) gm/dl Globulin (2.5-4.0) gm/dl Albumin/Globulin Ratio (0.9-2) Urine Opiates Screen (Neg) Ur Methadone, Qual (Neg) Urine Barbiturates (Neg) Ur Phencyclidine (PCP) (Neg) U Amphetamin/Meth Scrn (Neg) MDMA (Ecstasy) Screen (Neg) U Benzodiazepines Scrn (Neg) Ur Cocaine Metabolite (Neg) U Marijuana (THC) Screen (Neg) U Marijuana THC Carboxy (<5) ng/mL Drug Screen Comment COVID-19 Eval Order SARS-CoV-2, RNA, NAAT (NEGATIVE) 01/20/20 01/21/20 Range/Units 05:43 05:55 WBC 10.50 (4.8-10.8) K/uL RBC 3.89 L (4.2-5.4) M/uL Hgb 10.4 L 10.8 L (12.0-16.0) g/dL Hct 32.7 L 32.5 L (37-47) % MCV 84.1 (80-100) fL MCH 26.7 (25-34) pg MCHC 31.8 L (32-36) g/dL RDW Std Deviation 40.7 (36.4-46.3) fL RDW Coeff of Naga 13.6 (11.5-14.5) % Plt Count 166 (130-400) K/uL MPV 10.4 (7.4-10.4) fL Immature Gran % (Auto) 0.2 % Neut % (Auto) 72.2 % Lymph % (Auto) 17.0 % Mccreary % (Auto) 10.4 % Eos % (Auto) 0.1 % Baso % (Auto) 0.1 % Neut # (Auto) 7.59 H (1.4-6.5) K/uL Lymph # (Auto) 1.78 (1.2-3.4) K/uL [place] # (Auto) 1.09 H (0.11-0.59) K/uL Eos # (Auto) 0.01 (0-0.5) K/uL Baso # (Auto) 0.01 (0-0.2) K/uL Immature Gran # (Auto) 0.02 (0.00-0.02) K/uL Cord ABG pH (7.1-7.38) Cord ABG pCO2 (39.1-73.5) mmHg Cord ABG pO2 (4.1-31.7) mmHg Cord ABG HCO3 (19.7-28.5) mmol/L Cord ABG Base Excess (-9-1.8) mEq/L Cord ABG O2 Sat (<60) % Cord VBG pH (7.20-7.44) Cord VBG pCO2 (30.4-57.2) mmHg Cord VBG pO2 (14.1-43.3) mmHg Cord VBG HCO3 (18.4-26.8) mmol/L Cord VBG Base Excess (-7.7-1.9) mEq/L Cord VBG O2 Sat (<68) % Barometric Pressure mm/Hg Blood Gas Comments Sodium (136-145) mmol/L Potassium (3.5-5.1) mmol/L Chloride (98-107) mmol/L Carbon Dioxide (21-32) mmol/L Anion Gap (3-11) BUN (7-18) mg/dl Creatinine (0.6-1.2) mg/dl Est Cr Clr Drug Dosing ml/min Est GFR ( Amer) Est GFR (Non-Af Amer) BUN/Creatinine Ratio (10-20) Glucose (70-99) mg/dl Calcium (8.5-10.1) mg/dl Total Bilirubin (0.2-1) mg/dl AST (15-37) U/L ALT (12-78) U/L Alkaline Phosphatase (45-117) U/L Total Protein (6.4-8.2) gm/dl Albumin (3.4-5.0) gm/dl Globulin (2.5-4.0) gm/dl Albumin/Globulin Ratio (0.9-2) Urine Opiates Screen (Neg) Ur Methadone, Qual (Neg) Urine Barbiturates (Neg) Ur Phencyclidine (PCP) (Neg) U Amphetamin/Meth Scrn (Neg) MDMA (Ecstasy) Screen (Neg) U Benzodiazepines Scrn (Neg) Ur Cocaine Metabolite (Neg) U Marijuana (THC) Screen (Neg) U Marijuana THC Carboxy (<5) ng/mL Drug Screen Comment COVID-19 Eval Order SARS-CoV-2, RNA, NAAT (NEGATIVE) PE: General: Alert, orientedx3, NAD CVS: S1S2 RRR Lungs; CTAB Abd: soft, NT, ND, BS+, fundus firm, below Umbilicus Incision/ CINDY dressing: Clean, dry, intact Perineum intact, Lochia rubra minimal Ext; NT, no edema AP: 29 yo s/p C Section, pod# 2 VSS Afebrile doing well Continue routine postop care Encourage ambulation, PO intake All questions were answered D/C home tomorrow Results & Data ([facility]) Vital Signs (Past 12 Hours) Vital Signs Temp Pulse Resp BP 01/21/20 05:00 65 131/86 01/20/20 23:30 36.8 C 70 18 150/96 H
[2020-01-21] MEDS ORDERED: bisacodyL 10 MG SUPP PR PRN (18:18)
[2020-01-22] MEDS: IBUPROFEN 600 MG TAB PO PRN ×2 (05:16→09:03)
[2020-01-22] MEDS: oxyCODONE/ACETAMINOPHEN 5mg/325mg TAB PO PRN ×2 (05:17→09:03)
[2020-01-22] MEDS: SIMETHICONE 80 MG CHEW PO SCH (07:41)
[2020-01-22] MEDS: FERROUS SULFATE 325 MG TAB PO SCH (07:41)
[2020-01-22] MEDS: DOCUSATE SODIUM 100 MG CAP PO SCH (07:41)
[2020-01-22] MEDS: PRENATAL VITAMIN 1 TAB PO SCH (07:41)
--- NOTE | 2020-01-22 11:54 | Surgery Progress Note ---
Date of Service January 22, 2020 Assessment & Plan Admission and Anticipated Discharge Date Admission Date: January 17, 2020 Subjective Doing well passing gas tolerating diet ambulating well Physical Exam Constitutional: WD/WN, vitals as above comfortable abdomen soft and non- tender fundus firm incision intact no edema neg Steve's Results & Data ([facility]) Vital Signs (Past 12 Hours) Vital Signs Temp Pulse Resp BP Pulse Ox 01/22/20 11:15 37.3 C 67 18 141/92 H 100 01/22/20 10:33 141/92 H 01/22/20 09:30 67 145/87 H 01/22/20 08:00 37.3 C 68 18 149/85 H 100 01/22/20 00:00 36.5 C 76 18 126/85 Laboratory Results Laboratory Results - last 72 hr 01/17/20 01/19/20 01/19/20 18:43 16:11 17:08 WBC 10.98 H RBC 4.39 Hgb 12.1 Hct 36.2 L MCV 82.5 MCH 27.6 MCHC 33.4 RDW Std Deviation 40.8 RDW Coeff of Naga 13.5 Plt Count 162 MPV 9.9 Immature Gran % (Auto) 0.3 Neut % (Auto) 74.9 Lymph % (Auto) 16.9 [place] % (Auto) 7.7 Eos % (Auto) 0.1 Baso % (Auto) 0.1 Neut # (Auto) 8.23 H Lymph # (Auto) 1.86 [place] # (Auto) 0.84 H Eos # (Auto) 0.01 Baso # (Auto) 0.01 Immature Gran # (Auto) 0.03 H Cord ABG pH 7.30 Cord ABG pCO2 49 Cord ABG pO2 13 Cord ABG HCO3 24 Cord ABG Base Excess -3.3 Cord ABG O2 Sat < 60.0 Cord VBG pH Cord VBG pCO2 Cord VBG pO2 Cord VBG HCO3 Cord VBG Base Excess Cord VBG O2 Sat Barometric Pressure 731.0 Blood Gas Comments A U Marijuana THC Carboxy 649 H Drug Screen Comment SEE NOTE 01/19/20 01/20/20 01/21/20 17:08 05:43 05:55 WBC 10.50 RBC 3.89 L Hgb 10.4 L 10.8 L Hct 32.7 L 32.5 L MCV 84.1 MCH 26.7 MCHC 31.8 L RDW Std Deviation 40.7 RDW Coeff of Naga 13.6 Plt Count 166 MPV 10.4 Immature Gran % (Auto) 0.2 Neut % (Auto) 72.2 Lymph % (Auto) 17.0 [place] % (Auto) 10.4 Eos % (Auto) 0.1 Baso % (Auto) 0.1 Neut # (Auto) 7.59 H Lymph # (Auto) 1.78 [place] # (Auto) 1.09 H Eos # (Auto) 0.01 Baso # (Auto) 0.01 Immature Gran # (Auto) 0.02 Cord ABG pH Cord ABG pCO2 Cord ABG pO2 Cord ABG HCO3 Cord ABG Base Excess Cord ABG O2 Sat Cord VBG pH 7.34 Cord VBG pCO2 41 Cord VBG pO2 23 Cord VBG HCO3 22 Cord VBG Base Excess -3.8 Cord VBG O2 Sat < 60.0 Barometric Pressure 731.1 Blood Gas Comments INFANT A U Marijuana THC Carboxy Drug Screen Comment
== END 2020-01-22 11:35 | disposition home or self-care (01) | DRG 788 ==
LOC: 4S1 15:32 → 4S2 01-19 20:40
DX: Z3A.37 37 weeks gestation of pregnancy; O69.81X0 Labor and delivery complicated by cord around neck, without compression, not applicable or unspecified; Z37.0 Single live birth; O36.5930 Maternal care for other known or suspected poor fetal growth, third trimester, not applicable or unspecified; O77.8 Labor and delivery complicated by other evidence of fetal stress

== ENCOUNTER 2020-12-24 05:35 | Inpatient (IN) ==
--- NOTE | 2020-12-18 09:03 | Anesthesiology Consultation ---
Date of Service December 18, 2020 Assessment & Plan (1) Encounter for pre-operative examination: - Anesthesia record 01/19/2020: Labor epidural well tolerated, no issues noted. - COVID screening: Per assessment on 12/18/2020: Travel screen negative, no known COVID-19 positive contacts or current COVID-19 related symptoms. Surgeon arranging preop COVID testing, scheduled 12/20/2020. Awaiting results. Chart Review Chart Review: entry level programmer initiated History Surgery Operation Date: 12/24/20 07:30 Proposed Procedures p Repeat Section in LD - Saad Morales MD Height/Weight Height: 5 ft 9 in Weight: 132.903 kg Allergies Allergy/AdvReac Type Severity Reaction Status Date / Time No Known Allergies Allergy Verified 12/18/20 07:31 Medications Home Medications Medication Instructions Recorded Confirmed Last Taken vit no.95-ferrous 1 tab PO DAILY 01/17/20 12/18/20 01/17/20 07:00 fumarate 28 mg-folic acid 800 mcg tablet () aspirin 81 mg tablet,delayed 81 mg PO DAILY 12/18/20 12/18/20 Unknown release Past Medical History Medical History No known health problems Past Family History Family History Grandmother (Maternal) Family history of diabetes mellitus Other No family history of adverse response to anesthesia Family history sickle cell trait. Past Surgical History Surgical History H/O wisdom tooth extraction History of section X 1 Social History Smoking Status: Former smoker Smoking End Date: QUIT SMOKING "WHEN I FOUND OUT I WAS " Hx Alcohol Use: No Hx Substance Use: No substance use type: marijuana Last Used Substance: Days (ago) Last Used Substance Other:: per patient used within the last 2 weeks.
[2020-12-24] MEDS ORDERED: SODIUM CHLORIDE 0.9% 250 ML IV PRN (05:39)
[2020-12-24] MEDS ORDERED: LACTATED RINGER'S 1,000 ML IV SCH ×2 (06:00→09:30)
[2020-12-24] MEDS ORDERED: CITRIC ACID/SODIUM CITRATE 15 ML UDC PO SCH (06:00)
[2020-12-24] MEDS ORDERED: ceFAZolin 3,000 MG in DEXTROSE 5% 50 ML IV SCH (06:00)
[2020-12-24 06:15] LABS: Basophils # (auto) 0.01 K/uL (0-0.2); Basophils % (auto) 0.1 %; Eosinophils # (auto) 0.02 K/uL (0-0.5); Eosinophils % (auto) 0.3 %; Hematocrit (blood only) 32.7 % (37-47); Hemoglobin 10.5 g/dL (12.0-16.0); Immature Granulocytes # (auto) 0.03 K/uL (0.00-0.02); Immature Granulocytes % (auto) 0.4 %; Lymphocytes # (auto) 1.79 K/uL (1.2-3.4); Lymphocytes % (auto) 23.2 %; Mean Corpuscular Volume 80.9 fL (80-100); Monocytes # (auto) 0.79 K/uL (0.11-0.59); Monocytes % (auto) 10.2 %; Neutrophils # (auto) 5.08 K/uL (1.4-6.5); Neutrophils % (auto) 65.8 %; Platelet Count 195 K/uL (130-400); RDW Coefficient of Variation 13.9 % (11.5-14.5); RDW Standard Deviation 40.9 fL (36.4-46.3); Red Blood Count 4.04 M/uL (4.2-5.4); White Blood Count 7.72 K/uL (4.8-10.8)
[2020-12-24 06:16] LABS: Mean Corpuscular Hgb Conc 32.1 g/dL (32-36)
[2020-12-24] MEDS ORDERED: fentaNYL citrate 100 MCG/2 ML VIAL ONE (07:36)
[2020-12-24] MEDS ORDERED: ONDANSETRON INJ 2 MG/ML 2 ML VIAL ONE (07:36)
[2020-12-24] MEDS ORDERED: MoRPHine SULFATE PF 1 MG/ML 10 ML AMP/VIAL ONE (07:36)
[2020-12-24] MEDS ORDERED: OXYTOCIN 10 UNITS/ML VIAL ONE ×2 (07:36→08:20)
[2020-12-24] MEDS ORDERED: NALOXONE HCL 0.4 MG/1 ML VIAL/CARP IV PRN (07:40)
[2020-12-24] MEDS ORDERED: LACTATED RINGER'S 500 ML IV PRN (07:40)
[2020-12-24] MEDS ORDERED: diphenhydrAMINE 50 MG/ML VIAL IV PRN (07:40)
[2020-12-24] MEDS ORDERED: NALOXONE HCL 0.08 MG in SYRINGE 1.8 ML IV PRN (07:40)
[2020-12-24] MEDS ORDERED: ACETAMINOPHEN 1000 MG/100 ML IV IV PRN (07:40)
[2020-12-24] MEDS ORDERED: NALOXONE HCL 1 MG in SODIUM CHLORIDE 0.9% 1000ML 1,000 ML IV PRN (07:40)
[2020-12-24] MEDS ORDERED: NALBUPHINE HCL INJ 10 MG/ML AMP IV PRN (07:40)
[2020-12-24] MEDS ORDERED: ONDANSETRON INJ 2 MG/ML 2 ML VIAL IV PRN (07:40)
[2020-12-24] MEDS ORDERED: PROMETHAZINE HCL 25 MG in SODIUM CHLORIDE 0.9% 50 ML IV PRN (07:40)
[2020-12-24] MEDS ORDERED: MoRPHine SULFATE PF 1 MG/ML 10 ML AMP/VIAL INT SPINAL ONE (07:40)
[2020-12-24] MEDS ORDERED: ePHEDrine sulfate 50 MG/ML AMP IV PRN (07:40)
[2020-12-24] MEDS ORDERED: KETOROLAC 30 MG/ML VIAL IV PRN (07:40)
[2020-12-24] MEDS ORDERED: HYDROmorphone INJ 0.5 MG/0.5 ML SYR IV PRN (07:40)
--- NOTE | 2020-12-24 07:42 | History & Physical Bridge Note ---
Date of Service December 24, 2020 History & Physical Bridge Note I have examined the patient, reviewed the History & Physical and in the interval since the performance of the History & Physical I have noted the following changes of clinical significance: no changes noted
[2020-12-24] MEDS ORDERED: NO NARCOTICS OR SEDATIVES SCH (07:45)
[2020-12-24] MEDS ORDERED: DC INTRASPINAL MORPHINE SCH (07:45)
[2020-12-24] MEDS ORDERED: SODIUM CHLORIDE 0.9% 1000ML 1,000 ML IV SCH (07:45)
[2020-12-24] MEDS ORDERED: PHENYLEPHRINE 100MCG/ML 5ML SYR ONE (08:04)
[2020-12-24] MEDS ORDERED: ePHEDrine sulfate 50 MG/ML SYR ONE (08:04)
[2020-12-24] MEDS ORDERED: OXYTOCIN 10 UNITS/ML VIAL IM ONE (08:39)
[2020-12-24] MEDS ORDERED: miSOPROStoL 200 MCG TAB ONE (09:07)
[2020-12-24] MEDS ORDERED: miSOPROStoL 200 MCG TAB PR ONE (09:08)
[2020-12-24] MEDS ORDERED: BENZOCAINE 20% AER SPR 82.5 GM CAN EXT PRN (09:20)
[2020-12-24] MEDS ORDERED: SUPERCREAM 0.870% 15 GM JAR EXT PRN (09:20)
[2020-12-24] MEDS ORDERED: HYDROCORTISONE ACETATE 25 MG SUPP PR PRN (09:20)
[2020-12-24] MEDS ORDERED: DIPHTHERIA/TETANUS/PERTUSSIS 0.5 ML SYR/VIAL IM ONE (09:20)
[2020-12-24] MEDS ORDERED: SENNA 8.6 MG TAB PO PRN (09:20)
--- NOTE | 2020-12-24 09:20 | Post Operative Brief Note ---
Immediate Post Op Note v1 Date of Surgery December 24, 2020 Pre & Post Diagnosis Operation Date: 12/24/20 07:30 Pre-Op Diagnosis: Previous ; Pt desires Repeat Section. Post-Op Diagnosis: Previous ; Pt desires Repeat Section. I identified the patient and participated in the time-out.: Yes Procedure Operation Date: 12/24/20 07:30 Actual Procedures p Repeat Section; Live Female Infant at 0822 in OR # 3(Bilateral) - Saad Morales MD Surgeon Saad Morales MD Extraction Supervisor Dr Hung Estimated Blood Loss 800 Findings Consistent with Post-Op Diagnosis Drains Yun Catheter
--- NOTE | 2020-12-24 10:30 | Anesthesiology Progress Note ---
Date of Service December 24, 2020 Anesthesia Post Procedure Vital Signs Vital Signs: Temp Pulse Resp BP Pulse Ox 12/24/20 10:25 101 H 100 12/24/20 10:20 73 100 12/24/20 10:19 76 111/71 12/24/20 10:15 86 99 12/24/20 10:13 74 69 L 12/24/20 10:10 82 20 114/74 100 12/24/20 10:05 76 100 12/24/20 10:00 78 20 100 12/24/20 09:59 73 112/60 12/24/20 09:55 81 99 12/24/20 09:50 83 20 100 12/24/20 09:49 81 106/65 12/24/20 09:45 65 99 12/24/20 09:40 72 20 100 12/24/20 09:39 72 124/70 12/24/20 09:35 70 99 12/24/20 09:30 80 20 100 12/24/20 09:29 83 93 12/24/20 09:28 85 117/71 12/24/20 09:25 86 100 12/24/20 09:23 209/137 H 12/24/20 09:20 36.7 C 77 22 99 12/24/20 07:18 36.5 C 74 20 117/66 12/24/20 05:49 77 116/66 12/24/20 05:42 36.8 C 77 18 116/66 Transfer of Care Handoff Completed per policy Notes Mental Status: alert / awake / arousable and participated in evaluation Nausea / Vomiting: adequately controlled Pain: adequately controlled Airway Patency, RR, SpO2: stable & adequate BP & HR: stable & adequate Hydration State: stable & adequate Neuraxial Anesthesia: was administered and sensory block is resolving Anesthetic Complications: no major complications apparent and Pt Satisfied with anesthetic care
[2020-12-24] MEDS: OXYTOCIN 20 UNITS in LACTATED RINGER'S 1,000 ML IV SCH ×2 (11:31→20:14)
[2020-12-24] MEDS: SIMETHICONE 80 MG CHEW PO SCH ×3 (15:10→20:14)
[2020-12-24] MEDS: DOCUSATE SODIUM 100 MG CAP PO SCH (20:14)
[2020-12-25] MEDS ORDERED: diphenhydrAMINE Capsule 25 MG CAP PO PRN (01:40)
[2020-12-25] MEDS ORDERED: PROMETHAZINE HCL 25 MG in SODIUM CHLORIDE 0.9% 50 ML IV PRN (01:40)
[2020-12-25] MEDS ORDERED: diphenhydrAMINE 50 MG/ML VIAL IV PRN (01:40)
[2020-12-25] MEDS ORDERED: ONDANSETRON INJ 2 MG/ML 2 ML VIAL IV PRN (01:40)
[2020-12-25] MEDS: oxyCODONE/ACETAMINOPHEN 5mg/325mg TAB PO PRN ×5 (01:53→22:07)
[2020-12-25] MEDS: IBUPROFEN 600 MG TAB PO PRN ×5 (01:53→22:07)
[2020-12-25 06:25] LABS: Eosinophils # (auto) 0.03 K/uL (0-0.5); Eosinophils % (auto) 0.4 %; Hematocrit (blood only) 29.4 % (37-47); Hemoglobin 9.4 g/dL (12.0-16.0); Immature Granulocytes # (auto) 0.03 K/uL (0.00-0.02); Immature Granulocytes % (auto) 0.4 %; Lymphocytes # (auto) 1.42 K/uL (1.2-3.4); Mean Corpuscular Hemoglobin 26.9 pg (25-34); Mean Platelet Volume 10.1 fL (7.4-10.4); Monocytes # (auto) 0.86 K/uL (0.11-0.59); Monocytes % (auto) 10.3 %; Neutrophils # (auto) 6.01 K/uL (1.4-6.5); Neutrophils % (auto) 71.9 %; Platelet Count 174 K/uL (130-400); RDW Coefficient of Variation 14.1 % (11.5-14.5); White Blood Count 8.35 K/uL (4.8-10.8)
--- NOTE | 2020-12-25 09:01 | Obstetrical Progress Note ---
Date of Service December 25, 2020 Subjective Ambulation: limited ambulation Voiding: no voiding problems Diet Tolerance:: clear liquids Lochia:: Small Feeding Type:: breast feeding Current Pain Level(1-10): 0 doing well Physical Exam Constitutional WD/WN, vitals as above comfortable abdomen soft and non-tender incision c/d/i no edema neg Steve's Results & Data ([facility]) Vital Signs (Past 12 Hours) Vital Signs Temp Pulse Resp BP Pulse Ox 12/25/20 04:20 36.5 C 67 18 118/74 12/25/20 01:40 18 98 12/25/20 01:00 18 96 12/25/20 00:30 36.7 C 74 18 106/66 97 12/25/20 00:00 18 98 12/24/20 23:00 18 99 12/24/20 22:00 18 99 Laboratory Results Laboratory Results - last 72 hr 12/24/20 12/24/20 12/25/20 05:52 05:52 05:49 WBC 7.72 8.35 RBC 4.04 L 3.50 L Hgb 10.5 L 9.4 L Hct 32.7 L 29.4 L MCV 80.9 84.0 MCH 26.0 26.9 MCHC 32.1 32.0 RDW Std Deviation 40.9 43.0 RDW Coeff of Naga 13.9 14.1 Plt Count 195 174 MPV 10.0 10.1 Immature Gran % (Auto) 0.4 0.4 Neut % (Auto) 65.8 71.9 Lymph % (Auto) 23.2 17.0 [place] % (Auto) 10.2 10.3 Eos % (Auto) 0.3 0.4 Baso % (Auto) 0.1 0.0 Neut # (Auto) 5.08 6.01 Lymph # (Auto) 1.79 1.42 [place] # (Auto) 0.79 H 0.86 H Eos # (Auto) 0.02 0.03 Baso # (Auto) 0.01 0.00 Immature Gran # (Auto) 0.03 H 0.03 H Blood Type O Positive Antibody Screen NEGATIVE Crossmatch See Detail
[2020-12-25] MEDS: FERROUS SULFATE 325 MG TAB PO SCH (09:11)
[2020-12-25] MEDS: MAGNESIUM HYDROXIDE SUSP 30 ML UDC PO PRN (09:12)
[2020-12-25] MEDS: SIMETHICONE 80 MG CHEW PO SCH ×4 (09:12→20:11)
[2020-12-25] MEDS: PRENATAL VITAMIN 1 TAB PO SCH (09:12)
[2020-12-25] MEDS: DOCUSATE SODIUM 100 MG CAP PO SCH ×2 (09:12→20:11)
[2020-12-25] MEDS ORDERED: bisacodyL 5 MG TABEC PO SCH (20:00)
[2020-12-26] MEDS: IBUPROFEN 600 MG TAB PO PRN ×5 (03:50→23:33)
[2020-12-26] MEDS: oxyCODONE/ACETAMINOPHEN 5mg/325mg TAB PO PRN ×5 (03:51→23:33)
[2020-12-26 06:48] LABS: Hematocrit (blood only) 29.7 % (37-47); Hemoglobin 9.6 g/dL (12.0-16.0)
[2020-12-26] MEDS: DOCUSATE SODIUM 100 MG CAP PO SCH ×2 (08:52→21:06)
[2020-12-26] MEDS: SIMETHICONE 80 MG CHEW PO SCH ×4 (08:52→21:06)
[2020-12-26] MEDS: MAGNESIUM HYDROXIDE SUSP 30 ML UDC PO PRN (08:52)
[2020-12-26] MEDS: PRENATAL VITAMIN 1 TAB PO SCH (08:53)
[2020-12-26] MEDS: FERROUS SULFATE 325 MG TAB PO SCH (08:53)
[2020-12-26] MEDS ORDERED: bisacodyL 10 MG SUPP PR PRN (09:21)
--- NOTE | 2020-12-26 10:02 | Obstetrical Progress Note ---
Date of Service December 26, 2020 Subjective Ambulation: ambulating normally Voiding: no voiding problems Passing Gas:: Yes Diet Tolerance:: regular diet Lochia:: Small Feeding Type:: breast feeding Current Pain Level(1-10): 0 doing well Physical Exam Constitutional WD/WN, vitals as above comfortable abdomen soft and non-tender incision c/d/i no edema neg Steve's tent d/c in AM Results & Data ([facility]) Vital Signs (Past 12 Hours) Vital Signs Temp Pulse Resp BP Pulse Ox 12/25/20 23:30 36.4 C L 69 20 111/62 98 Laboratory Results 12/24/20 12/24/20 12/25/20 05:52 05:52 05:49 WBC 7.72 8.35 RBC 4.04 L 3.50 L Hgb 10.5 L 9.4 L Hct 32.7 L 29.4 L MCV 80.9 84.0 MCH 26.0 26.9 MCHC 32.1 32.0 RDW Std Deviation 40.9 43.0 RDW Coeff of Naga 13.9 14.1 Plt Count 195 174 MPV 10.0 10.1 Immature Gran % (Auto) 0.4 0.4 Neut % (Auto) 65.8 71.9 Lymph % (Auto) 23.2 17.0 [place] % (Auto) 10.2 10.3 Eos % (Auto) 0.3 0.4 Baso % (Auto) 0.1 0.0 Neut # (Auto) 5.08 6.01 Lymph # (Auto) 1.79 1.42 [place] # (Auto) 0.79 H 0.86 H Eos # (Auto) 0.02 0.03 Baso # (Auto) 0.01 0.00 Immature Gran # (Auto) 0.03 H 0.03 H Blood Type O Positive Antibody Screen NEGATIVE Crossmatch See Detail 12/26/20 05:58 WBC RBC Hgb 9.6 L Hct 29.7 L MCV MCH MCHC RDW Std Deviation RDW Coeff of Naga Plt Count MPV Immature Gran % (Auto) Neut % (Auto) Lymph % (Auto) [place] % (Auto) Eos % (Auto) Baso % (Auto) Neut # (Auto) Lymph # (Auto) [place] # (Auto) Eos # (Auto) Baso # (Auto) Immature Gran # (Auto) Blood Type Antibody Screen Crossmatch
[2020-12-27] MEDS: oxyCODONE/ACETAMINOPHEN 5mg/325mg TAB PO PRN ×3 (03:49→12:22)
[2020-12-27] MEDS: IBUPROFEN 600 MG TAB PO PRN ×3 (03:49→12:21)
[2020-12-27] MEDS: FERROUS SULFATE 325 MG TAB PO SCH (08:22)
[2020-12-27] MEDS: SIMETHICONE 80 MG CHEW PO SCH (08:22)
[2020-12-27] MEDS: PRENATAL VITAMIN 1 TAB PO SCH (08:22)
[2020-12-27] MEDS: DOCUSATE SODIUM 100 MG CAP PO SCH (08:22)
--- NOTE | 2020-12-27 10:01 | Obstetrical Progress Note ---
Date of Service December 27, 2020 Subjective Ambulation: ambulating normally Voiding: no voiding problems Passing Gas:: Yes Diet Tolerance:: regular diet Lochia:: Small Feeding Type:: breast feeding Current Pain Level(1-10): 0 doing well Physical Exam Constitutional WD/WN, vitals as above comfortable abdomen soft and non-tender incision c/d/i no edema neg Steve's for d/c home Results & Data ([facility]) Vital Signs (Past 12 Hours) Vital Signs Temp Pulse Resp BP Pulse Ox 12/27/20 07:45 36.5 C 75 16 129/86 12/27/20 04:31 36.5 C 76 20 110/70 100 12/27/20 00:00 36.4 C L 69 20 114/72 99
--- NOTE | 2021-01-07 12:38 | Operative Report (OR) ---
DATE OF PROCEDURE: 12/24/2020 INDICATION FOR SURGERY: This is a 30-year-old patient with prior section, wishes to have repeat section. PREOPERATIVE DIAGNOSES: 1. at term. 2. Previous section, wishes to have section. POSTOPERATIVE DIAGNOSES: 1. at term. 2. Previous section, wishes to have section. SURGEON: Saad Morales MD. SOLOIST DANCER: Dr. Cristy Hung. ANESTHESIA: Spinal. PROCEDURE: Repeat section. COMPLICATIONS: None. DRAINS: Yun catheter. FINDINGS: Infant in cephalic presentation. Uterus and adnexa appeared grossly normal. Rest of the abdominopelvic exam is unremarkable. INTRAVENOUS FLUIDS: 1000 mL. ESTIMATED BLOOD LOSS: 800 mL. URINE OUTPUT: 100 mL of clear urine at the end of the procedure. INTRAOPERATIVE COMPLICATIONS: None. PATHOLOGY: Placenta. Portions of left and rt fallopian tubes Attestation for dental chairside assistant: The dental chairside assistant was necessary for retraction and manipulation of instrument and to provide proper visualization for a safe procedure DESCRIPTION OF PROCEDURE: The patient was taken to the operating room where she was prepped and draped in normal sterile fashion. A timeout was called. A Pfannenstiel incision was made through the old scar and carried down to the fascia. Fascia was incised in the midline. Incision was extended laterally on both sides using Kent scissors. The fascia was grabbed with Kochers and sharply dissected off the rectus abdominis muscle. This was performed superiorly and inferiorly. Peritoneum was identified and entered sharply. An Damien retractor was placed in the abdomen. Vesicouterine peritoneum was sharply dissected off the lower segment of the uterus. A transverse low incision was made and extended laterally on both sides using bandage scissors. Amniotomy was performed. There was clear fluid. was in cephalic presentation, was delivered. Cord clamped and cut and handed over to the pediatric team. Details of the infant's information is in the pediatric record. Placenta was manually removed. Placenta was sent to pathology for pathological analysis. The uterus was exteriorized and cleared of all clots and debris. Copious amount of irrigation was used to irrigate the abdomen. Uterus was closed in 2 layers with Vicryl. There was good hemostasis post-closure. The vesicouterine peritoneum was approximated using plain suture and a plain suture was used to close the peritoneum as well. There was good hemostasis on the rectus abdominis muscle. The fascia was closed in a running fashion using Vicryl stitch. Subcutaneous space was irrigated and approximated with plain suture, skin was closed with andriy. All instruments were removed from the abdomen including retractors, sponges and needles and accounted for x2. The patient is sent to recovery in stable condition. Job ID: [id number] [facility]
--- NOTE | 2021-01-07 12:42 | Discharge Summary (DS) ---
DATE OF ADMISSION: 12/24/2020 DATE OF DISCHARGE: 12/27/2020 CHIEF COMPLAINT: 1. at term. 2. Previous section, wishes to have repeat . HISTORY OF PRESENT ILLNESS: This is a 30-year-old status post prior section, who is present ly and wishes to have a repeat . Surgery was performed. Details of surgery is in the surgical note as well as in pediatric information respectively. Surgery otherwise was unremarkab le. The patient was discharged on 12/27/2020 in stable condition. PAST MEDICAL HISTORY: Elevated BMI. PAST SURGICAL HISTORY: History of prior section and dental procedure. FAMILY HISTORY: Noncontributory. SOCIAL HISTORY: The patient denies tobacco, drug or alcohol use. The patient is single and lives wi th 4 children. ALLERGIES: No known drug allergies. REVIEW OF SYSTEMS: Negative except as dictated in the HPI. PHYSICAL EXAMINATION: GENERAL: Well-developed, well-nourished black female in no acute distress. VITAL SIGNS: On 12/27/2020, blood pressure is 129/86, pulse 75, respirations 16, temperature 36.5. HEART: S1 and S2, regular rhythm and rate. LUNGS: Clear to auscultation bilaterally. ABDOMEN: Nontender, nondistended, positive bowel sounds. Incision clean, dry and intact. CONDITION ON DISCHARGE: Stable. OPERATION: Repeat section. DISCHARGE DIAGNOSES: Postoperative after repeat section. PLAN ON DISCHARGE: The patient is discharged home with instructions regarding activity, diet, follow up appointment and medications. Job ID: [id number]
== END 2020-12-27 14:31 | disposition home or self-care (01) | DRG 788 ==
LOC: ASU 05:35 → 4S1 05:37 → 4S2 12:09

== ENCOUNTER 2022-04-16 17:04 | Observation (INO) ==
--- NOTE | 2022-04-16 17:53 | XRay Report ---
XR chest 1V portable CLINICAL HISTORY: preop TECHNIQUE: Single frontal radiograph of the chest was obtained. Comparison: None available at the time of this dictation. FINDINGS: No lines and tubes are seen. The cardiomediastinal silhouette is normal. The lungs are clear. No evid ence of pleural effusion or pneumothorax. IMPRESSION: No acute chest disease. ACT 112: Negative or not required by law. Electronically signed by: Jared Bernard M.D. 04/16/2022 5:52 PM
[2022-04-16 18:11] LABS: Basophils # (auto) 0.03 K/uL (0-0.2); Basophils % (auto) 0.4 %; Eosinophils # (auto) 0.04 K/uL (0-0.50); Eosinophils % (auto) 0.5 %; Hematocrit (blood only) 40.7 % (34.1-44.9); Hemoglobin 13.1 g/dl (12.0-16.0); Immature Granulocytes # (auto) 0.01 K/uL (0.00-0.02); Immature Granulocytes % (auto) 0.1 %; Lymphocytes # (auto) 1.79 K/uL (1.2-3.4); Lymphocytes % (auto) 22.3 %; Mean Corpuscular Hemoglobin 26.5 pg (25.0-34.0); Mean Corpuscular Hgb Conc 32.2 g/dL (32.0-36.0); Mean Corpuscular Volume 82.2 fL (80.0-100.0); Mean Platelet Volume 9.7 fL (9.4-12.3); Monocytes # (auto) 0.73 K/uL (0.24-0.82); Monocytes % (auto) 9.1 %; Neutrophils # (auto) 5.41 K/uL (1.4-6.5); Neutrophils % (auto) 67.6 %; Platelet Count 228 K/uL (130-400); RDW Coefficient of Variation 14.8 % (11.5-14.5); RDW Standard Deviation 43.7 fL (36.4-46.3); Red Blood Count 4.95 M/uL (3.93-5.22); White Blood Count 8.01 K/ul (4.8-10.8)
[2022-04-16 18:14] LABS: Appearance Urine Clear (Clear); Bilirubin Urine Negative (Negative); Blood Urine Negative (Negative); Color Urine Yellow; Glucose Urine UA Negative (Negative); Ketones Urine 2+ (Negative); Leukocyte Esterase Urine Negative (Negative); Nitrite Urine Negative (Negative); Protein Urine Negative (Negative); Urobilinogen Urine Negative (Negative); pH Urine 5.5 (4.5-7.5)
[2022-04-16 18:43] LABS: Albumin Level 4.3 gm/dl (3.4-5.0); Bilirubin,Total 0.5 mg/dl (0.2-1.0); Calcium 9.1 mg/dl (8.5-10.1); Potassium 3.9 mmol/L (3.5-5.1)
[2022-04-16 18:49] LABS: Albumin Globulin Ratio 1.3 (0.9-2); BUN Creatinine Ratio 13.6 (10-20); Creatinine Clr Calc Pharmacy 120.6 ml/min; Est GFR (African American) 100.1 ml/min; Est GFR (Non-African American) 86.3 ml/min; Globulin 3.3 gm/dl (2.5-4.0); Total Protein 7.6 gm/dl (6.0-8.3)
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
[2022-04-16] MEDS ORDERED: ONDANSETRON INJ 2 MG/ML 2 ML VIAL IV STA (19:37)
[2022-04-16] MEDS ORDERED: SODIUM CHLORIDE 0.9% 1000ML 1,000 ML IV ONE (19:37)
[2022-04-16] MEDS: ceFAZolin 2000MG 2,000 MG/15 ML SYR IV SCH (20:19)
[2022-04-16] MEDS: MoRPHine SULFATE 4 MG/ML 1 ML CARP\\VIAL IV PRN (20:19)
[2022-04-17] MEDS: ceFAZolin 2000MG 2,000 MG/15 ML SYR IV SCH ×2 (02:44→16:20)
[2022-04-17] MEDS: MoRPHine SULFATE 4 MG/ML 1 ML CARP\\VIAL IV PRN ×3 (02:48→22:10)
[2022-04-17] MEDS ORDERED: DEXAMETHASONE SOD INJ 4 MG/ML VIAL ONE (08:04)
[2022-04-17] MEDS ORDERED: PROPOFOL IV EMULSION 10 MG/ML 20 ML VIAL IV ONE ×3 (08:04→10:25)
[2022-04-17] MEDS ORDERED: ONDANSETRON INJ 2 MG/ML 2 ML VIAL ONE (08:04)
[2022-04-17] MEDS ORDERED: fentaNYL citrate 100 MCG/2 ML VIAL ONE ×3 (08:04→10:40)
[2022-04-17] MEDS ORDERED: MIDAZOLAM HCL 1 MG/ML 2ML VIAL ONE (08:04)
--- NOTE | 2022-04-17 08:37 | History & Physical Bridge Note ---
Date of Service April 17, 2022 History & Physical Bridge Note I have examined the patient, reviewed the History & Physical and in the interval since the performance of the History & Physical I have noted the following changes of clinical significance: no changes noted WE will plan closed reduction today I will order liquid medication post op Follow up my office in 5-7 days
[2022-04-17] MEDS ORDERED: LIDOCAINE/EPINEPHRINE 1.7 ML CTR ONE (08:58)
[2022-04-17] MEDS ORDERED: CHLORHEXIDINE GLUCONATE 0.12% 480 ML MT ONE (08:58)
--- NOTE | 2022-04-17 09:01 | Anesthesiology Consultation ---
Date of Service April 17, 2022 Assessment & Plan Chart Review Chart Review: Acceptable Risk for Surgery Consults Requested none History Surgery Operation Date: 04/17/22 08:35 Proposed Procedures p Mandibular Closed Reduction - Elmer Byrne DMD Height/Weight Height: 5 ft 9 in Weight: 110.7 kg Allergies Allergy/AdvReac Type Severity Reaction Status Date / Time No Known Allergies Allergy Verified 04/14/22 13:38 Medications Home Medications Medication Instructions Recorded Confirmed Last Taken amoxicillin 875 mg-potassium 1 tab PO Q12H open fracture right 04/14/22 04/14/22 Unknown clavulanate 125 mg tablet jaw #20 tabs amoxicillin 250 mg/5 mL oral 500 mg (10 mL) PO BID jaw fracture 04/17/22 Unknown suspension #150 mL hydrocodone 7.5 mg-acetaminophen 15 ml PO Q4H PRN pain #250 mL 04/17/22 Unknown 325 mg/15 mL oral solution Active Medications Generic Name Dose Route Start Last Admin Trade Name Freq PRN Reason Stop Dose Admin Cefazolin Sodium 2,000 mg in 15 mls @ 3.75 mls/min 04/16/22 19:00 04/17/22 02:44 Ancef 2000mg IV 04/17/22 18:59 3.75 mls/min Q8H IVETTE Administration Morphine Sulfate 3 mg 04/16/22 18:57 04/17/22 02:48 Morphine Sulfate 4 Mg/Ml 1 Ml Carp\Vial IV 04/30/22 18:56 3 mg PRN PRN Administration Pain NPO Date Last Intake of Fluids: 04/16/22 Time Last Intake of Fluids: 22:00 Date Last Intake of Solids: 04/16/22 Time Last Intake of Solids: 19:00 Past Medical History Medical History No known health problems Normal breast feeding breast feeding Past Family History Family History Grandmother (Maternal) Family history of diabetes mellitus Other No family history of adverse response to anesthesia Past Surgical History Surgical History H/O wisdom tooth extraction History of section X 1 Social History Smoking Status: Never smoker Hx Alcohol Use: Yes alcohol intake frequency: holidays/special occasions only Hx Substance Use: Yes substance use type: marijuana Physical Exam Vital Signs Last Vital Signs Temp 36.7 C 04/17/22 07:52 Pulse 67 04/17/22 07:52 Resp 18 04/17/22 07:52 BP 119/82 04/17/22 07:52 Pulse Ox 98 04/17/22 07:52 O2 Del Method 04/17/22 07:52 Testing Laboratory Results 04/16/22 18:02 04/16/22 18:02 Urine Color Yellow 04/16/22 18:02 Urine Appearance Clear (Clear) 04/16/22 18:02 Urine pH 5.5 (4.5-7.5) 04/16/22 18:02 Ur Specific [place] 1.030 (1.000-1.030) 04/16/22 18:02 Urine Protein Negative (Negative) 04/16/22 18:02 Urine Glucose (UA) Negative (Negative) 04/16/22 18:02 Urine Ketones 2+ (Negative) H 04/16/22 18:02 Urine Nitrite Negative (Negative) 04/16/22 18:02 Ur Leukocyte Esterase Negative (Negative) 04/16/22 18:02 04/17/22 07:55 POC Ur Test NEG
[2022-04-17] MEDS ORDERED: ATROPINE SULFATE 0.1 MG/ML 10ML SYR IV PRN (09:02)
[2022-04-17] MEDS ORDERED: PROMETHAZINE HCL 12.5 MG in SODIUM CHLORIDE 0.9% 50 ML IV PRN (09:02)
[2022-04-17] MEDS ORDERED: OXYMETAZOLINE 0.05% 30 ML BTL ONE (09:02)
[2022-04-17] MEDS ORDERED: ONDANSETRON INJ 2 MG/ML 2 ML VIAL IV PRN (09:02)
[2022-04-17] MEDS ORDERED: ePHEDrine sulfate 50 MG/ML AMP IV PRN (09:02)
[2022-04-17] MEDS ORDERED: ROCURONIUM BROMIDE 10 MG/ML 5 ML VIAL IV ONE (09:31)
[2022-04-17] MEDS ORDERED: SUCCINYLCHOLINE CHLORIDE 20 MG/ML 10 ML VIAL IV ONE (09:31)
[2022-04-17] MEDS ORDERED: METOPROLOL TARTRATE 1 MG/ML VIAL IV ONE (10:25)
[2022-04-17] MEDS ORDERED: LABETALOL HCL IV 5 MG/ML 20ML IV ONE ×2 (10:25→12:06)
[2022-04-17] MEDS ORDERED: HYDROmorphone INJ 2 MG/ML SYR/VIAL ONE (10:42)
[2022-04-17] MEDS ORDERED: ACETAMINOPHEN/HYDROcodone ELIX 15 ML/CUP PO PRN (10:54)
[2022-04-17] MEDS ORDERED: ACETAMINOPHEN SUSP 325 MG/10.15 ML UDC PO PRN (10:54)
[2022-04-17] MEDS ORDERED: OXYMETAZOLINE 0.05% 30 ML BTL PRN (10:54)
[2022-04-17] MEDS ORDERED: LORazepam 2 MG/1 ML VIAL IV PRN (10:54)
[2022-04-17] MEDS: fentaNYL citrate 100 MCG/2 ML VIAL IV PRN ×4 (11:02→11:35)
[2022-04-17] MEDS: HYDROmorphone INJ 2 MG/ML SYR/VIAL IV PRN ×4 (11:48→13:19)
[2022-04-17] MEDS ORDERED: LABETALOL HCL IV 5 MG/ML 20ML IV STA ×3 (12:12→12:40)
--- NOTE | 2022-04-17 12:27 | Operative Report ---
PG Post Operative Report Pre & Post Diagnosis Operation Date: 04/17/22 08:35 Pre-Op Diagnosis: s/p displaced fracture of the jaw not able to swal Post-Op Diagnosis: s/p displaced fracture of the jaw not able to swal I identified the patient and participated in the time-out.: Yes Procedure Operation Date: 04/17/22 08:35 Actual Procedures p Mandibular Closed Reduction(Not Applicable) - Elmer Byrne DMD Surgeon Elmer Byrne, RAFY Intervention Specialist none Estimated Blood Loss 10 Findings Consistent with Post-Op Diagnosis displaced mandibular fracture with significant dentalmalocclusion Specimens none Drains none Anesthesia Type General Complications none Indications Lower jaw fracture with malocclusion Description of Procedure ADMITTING DIAGNOSES: Displaced mandibular fracture (right edward) Fractured tooth # 11 OPERATION: Closed reduction of right mandibular angle fractures with placement of hybrid (screw retained ) arch bars CPT 53466 S02.651A OPERATION IN DETAIL: After this patient was cleared to undergo general, The patient was placed under general anesthesia via a nasotracheal intubation. After an appropriate time-out was taken to ensure that we had Surray Inna in our operating room with the proper equipment. After everyone agreed, the operation began. The patient was deeply anesthetized and the tubes were secured. The patient was prepped and draped in the usual manner. Given the nature of the fracture, a closed functional approach will be used. Arch bars will be placed on the upper/lower teeth and then a series of elastics/wires will be placed. Placement of Arch Bars Upper/Lower teeth: Local anesthesia in the form of Marcaine with a vasoconstrictor, approximately 4 carpules of the local anesthesia was injected into the mucobuccal tissues of the upper/lower jaws. The fractured was reduced and the occlusion was checked. Using the hybrid [facility] Audi hybrid arch bars I fitted them to the upper and lower jaw bones. Using the sliding stabilization plates I carefully secured each of the 7 screw holes with a 6 mm x 2 mm fixation screw. When both of the arch bars were placed I checked to insure they were passive and well placed . Once this was completed I checked the occlusion which I had established and noted that the TMJ was stable with a good opening. Placement of inter-arch (dental) fixation with rubber bands: I removed the throat packs, irrigated the oral cavity and suctioned it dry and passed an OG tube. I was able to carefully place the mandible into proper inter-dental relationship with the maxilla. I will place the patient into a fixated position with 4 24gss wires at the conclusion of the case. Recovery Phase: At this time the sponge and instruments count was correct. The patient was allowed to recover in the usual manner and then once fully recovered moved to the recovery room, Post op plans: My plan is to keep the patient in a fixated position for at least 4 weeks. If there is consolidation of the fracture at 4 weeks I will remove the wires and place her in functional elastics. We will keep the arch bars in place for a total of 7-8 weeks, then return Surray to the operating room for removal of the maxillary/mandibular fixation devices. I will refer the patient to a dentist for evaluation of the tooth that was fractured for repair and replacement ( tooth # 11) Outcome: Transported in stable condition to post anesthesia recovery area. The patient tolerated the surgical procedure and anesthesia extremely well and I anticipate an uneventful postoperative course. If we can get approval for the liquid Pain Meds ( Lortab) we will discharge Surray. If the [employer] insurance is delaying in approving the liquid pain meds we will have no choice but to keep her in the hospital for pain control. I attest to the content of the Intraoperative Record and any orders documented therein. Any exceptions are noted below.
[2022-04-17] MEDS ORDERED: hydrALAZINE HCL 20 MG/ML VIAL ONE (12:58)
[2022-04-17] MEDS: hydrALAZINE HCL 20 MG/ML VIAL IV ONE ×2 (13:02→13:16)
[2022-04-17] MEDS ORDERED: hydrALAZINE HCL 20 MG/ML VIAL IV ONE (13:06)
--- NOTE | 2022-04-17 13:28 | XRay Report ---
XR mandible <4V CLINICAL HISTORY: Status Post-Op Surgery AP Mandibular and Jaw View COMPARISON STUDY: CT facial bones 04/14/2022. FINDINGS: A nondisplaced right mandibular ramus fracture is again noted. Maxillary and mandibular sharon sae and screws appear in good position. There is wire fusion of the teeth. The alignment appears dima omic. The hardware appears intact. IMPRESSION: Postoperative changes as described above. ACT 112: Negative or not required by law. Electronically signed by: Bandar Guerra M.D. 04/17/2022 1:26 PM
[2022-04-17] MEDS ORDERED: hydrALAZINE HCL 20 MG/ML VIAL IV STA (13:45)
--- NOTE | 2022-04-17 14:04 | Anesthesiology Progress Note ---
Date of Service April 17, 2022 Anesthesia Post Procedure Vital Signs Vital Signs: Temp Pulse Pulse Pulse Resp BP BP 04/17/22 13:50 93 H 19 156/101 H 04/17/22 13:40 89 18 158/111 H 04/17/22 13:30 90 19 149/99 H 04/17/22 13:20 86 18 146/106 H 04/17/22 13:10 80 21 152/100 H 04/17/22 13:00 81 18 157/100 H 04/17/22 12:50 79 17 157/105 H 04/17/22 12:40 78 16 172/108 H 04/17/22 12:30 84 18 156/103 H 04/17/22 12:20 87 17 152/98 H 04/17/22 12:10 90 20 133/105 H 04/17/22 12:00 82 16 146/100 H 04/17/22 11:50 86 16 141/97 H 04/17/22 11:40 86 17 159/119 H 04/17/22 11:30 91 H 18 161/103 H 04/17/22 11:22 94 H 18 154/110 H 04/17/22 11:11 87 15 163/106 H 04/17/22 11:06 89 16 168/108 H 04/17/22 10:56 88 17 147/99 H 04/17/22 10:47 36.5 C 95 H 12 155/104 H 04/17/22 07:52 36.7 C 67 18 04/17/22 07:50 36.8 C 65 16 04/16/22 21:15 36.5 C 71 18 04/16/22 20:33 78 18 04/16/22 17:34 36.7 C 82 18 143/96 H BP Pulse Ox O2 Del Method O2 Flow Rate 04/17/22 13:50 94 Oxymask 5 04/17/22 13:40 94 Oxymask 5 04/17/22 13:30 93 Oxymask 5 04/17/22 13:20 92 Oxymask 5 04/17/22 13:10 92 Oxymask 5 04/17/22 13:00 92 Oxymask 5 04/17/22 12:50 93 Oxymask 5 04/17/22 12:40 93 Oxymask 5 04/17/22 12:30 91 Oxymask 5 04/17/22 12:20 91 Oxymask 5 04/17/22 12:10 90 Oxymask 5 04/17/22 12:00 89 L Oxymask 5 04/17/22 11:50 86 L Nasal Cannula 4 04/17/22 11:40 91 Nasal Cannula 2 04/17/22 11:30 88 L Nasal Cannula 2 04/17/22 11:22 88 L Nasal Cannula 2 04/17/22 11:11 93 Oxymask 5 04/17/22 11:06 94 Oxymask 5 04/17/22 10:56 97 Oxymask 9 04/17/22 10:47 93 Oxymask 9 04/17/22 07:52 119/82 98 Room Air 04/17/22 07:50 132/85 100 Room Air 04/16/22 21:15 144/89 H 99 Room Air 04/16/22 20:33 145/89 H 100 Room Air 04/16/22 17:34 100 Room Air Pain Intensity Jaw: Pain Intensity: 8 Transfer of Care Handoff Completed per policy Notes Mental Status: alert / awake / arousable and participated in evaluation Patient Amnestic to Procedure: Yes Nausea / Vomiting: adequately controlled Pain: adequately controlled Airway Patency, RR, SpO2: stable & adequate BP & HR: stable & adequate and see Notes below (pt has had elevated BP in PACU. Treated with analgesics,Labetalol and hydralazine without improvement. Dr Byrne requested hospitalist consultation, requested.) Hydration State: stable & adequate Anesthetic Complications: no major complications apparent
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
[2022-04-17] MEDS ORDERED: LABETALOL HCL IV 5 MG/ML 20ML IV PRN (14:53)
[2022-04-17] MEDS ORDERED: KETOROLAC 30 MG/ML VIAL IV ONE (15:00)
--- NOTE | 2022-04-17 15:22 | Electrocardiogram Report ---
Test Reason : Blood Pressure : / mmHG Vent. Rate : 074 BPM Atrial Rate : 074 BPM P-R Int : 144 ms QRS Dur : 076 ms QT Int : 358 ms P-R-T Axes : 062 031 054 degrees QTc Int : 397 ms Poor data quality, interpretation may be adversely affected Normal sinus rhythm Possible Left atrial enlargement Borderline ECG No previous ECGs available Confirmed by Elian Carvalho ([id number]) on 04/17/2022 3:21:59 PM Referred By: Elmer Byrne Confirmed By:Elian Carvalho
--- NOTE | 2022-04-17 15:50 | Oral/Maxillofacial Progress Nt ---
Date of Service April 17, 2022 Assessment & Plan Admission and Anticipated Discharge Date Admission Date: April 17, 2022 Subjective tolerated surgery very well excellent result In a lot of pain in the PACU despite use of local anesthesia for blocks Also elevated BL will consult Hospital service for management of BP . Suggest she stay tonight for BP management. I will see in AM Still awaiting approval of liquid pain meds from the insurance. Appreciate Hospitalist medicine support. Results & Data ([facility]) Vital Signs (Past 12 Hours) Vital Signs Temp Pulse Pulse Resp BP BP Pulse Ox 04/17/22 15:30 102 H 22 154/101 H 95 04/17/22 15:15 96 H 21 147/101 H 96 04/17/22 15:00 36.4 C L 97 H 21 162/107 H 96 04/17/22 14:50 97 H 21 151/108 H 96 04/17/22 14:40 104 H 23 141/111 H 95 04/17/22 14:30 104 H 20 150/110 H 96 04/17/22 14:20 101 H 21 161/104 H 95 04/17/22 14:10 101 H 21 160/102 H 95 04/17/22 14:00 100 H 20 165/104 H 94 04/17/22 13:50 93 H 19 156/101 H 94 04/17/22 13:40 89 18 158/111 H 94 04/17/22 13:30 90 19 149/99 H 93 04/17/22 13:20 86 18 146/106 H 92 04/17/22 13:10 80 21 152/100 H 92 04/17/22 13:00 81 18 157/100 H 92 04/17/22 12:50 79 17 157/105 H 93 04/17/22 12:40 78 16 172/108 H 93 04/17/22 12:30 84 18 156/103 H 91 04/17/22 12:20 87 17 152/98 H 91 04/17/22 12:10 90 20 133/105 H 90 04/17/22 12:00 82 16 146/100 H 89 L 04/17/22 11:50 86 16 141/97 H 86 L 04/17/22 11:40 86 17 159/119 H 91 04/17/22 11:30 91 H 18 161/103 H 88 L 04/17/22 11:22 94 H 18 154/110 H 88 L 04/17/22 11:11 87 15 163/106 H 93 04/17/22 11:06 89 16 168/108 H 94 04/17/22 10:56 88 17 147/99 H 97 04/17/22 10:47 36.5 C 95 H 12 155/104 H 93 04/17/22 07:52 36.7 C 67 18 119/82 98 04/17/22 07:50 36.8 C 65 16 132/85 100 O2 Del Method O2 Flow Rate 04/17/22 15:30 Oxymask 2 04/17/22 15:15 Oxymask 2 04/17/22 15:00 Oxymask 2 04/17/22 14:50 Oxymask 2 04/17/22 14:40 Oxymask 2 04/17/22 14:30 Oxymask 2 04/17/22 14:20 Oxymask 2 04/17/22 14:10 Oxymask 2 04/17/22 14:00 Oxymask 2 04/17/22 13:50 Oxymask 5 04/17/22 13:40 Oxymask 5 04/17/22 13:30 Oxymask 5 04/17/22 13:20 Oxymask 5 04/17/22 13:10 Oxymask 5 04/17/22 13:00 Oxymask 5 04/17/22 12:50 Oxymask 5 04/17/22 12:40 Oxymask 5 04/17/22 12:30 Oxymask 5 04/17/22 12:20 Oxymask 5 04/17/22 12:10 Oxymask 5 04/17/22 12:00 Oxymask 5 04/17/22 11:50 Nasal Cannula 4 04/17/22 11:40 Nasal Cannula 2 04/17/22 11:30 Nasal Cannula 2 04/17/22 11:22 Nasal Cannula 2 04/17/22 11:11 Oxymask 5 04/17/22 11:06 Oxymask 5 04/17/22 10:56 Oxymask 9 04/17/22 10:47 Oxymask 9 04/17/22 07:52 Room Air 04/17/22 07:50 Room Air PG Care Time/CCT Total # of Minutes Spent Total Time Spent with Patient: Total time spent is greater than 50% in coordination of care (as documented) at patient's floor/unit and/or counseling patient: Coding Level of Care Code None
[2022-04-17] MEDS: KETOROLAC 30 MG/ML VIAL IV PRN ×2 (17:38→23:36)
--- NOTE | 2022-04-17 20:07 | History & Physical Report ---
Date of Service April 17, 2022 Assessment & Plan Admission and Anticipated Discharge Date Admission Date: April 16, 2022 History of Present Illness Chief Complaint: Hypertension Primary Care Provider: Maldonado Mcbride MD Allergies Allergy/AdvReac Type Severity Reaction Status Date / Time No Known Allergies Allergy Verified 04/14/22 13:38 Home Medications Medication Instructions Recorded Confirmed Type amoxicillin 250 mg/5 mL oral 500 mg (10 mL) PO BID jaw fracture 04/17/22 04/17/22 Rx suspension #150 mL hydrocodone 7.5 mg-acetaminophen 15 ml PO Q4H PRN pain #250 mL 04/17/22 04/17/22 Rx 325 mg/15 mL oral solution Past Med/Surg History Medical History No known health problems Normal breast feeding breast feeding Surgical History H/O wisdom tooth extraction History of section X 1 Family History (Updated 04/17/22 @ 15:03 by Roxana Watson PA-C) Grandmother (Maternal) Family history of diabetes mellitus Mother Hypertension Father Hypertension Other Heart disease No family history of adverse response to anesthesia Social History Smoking Status: Never smoker Tobacco Type: Cigarettes Hx Alcohol Use: Yes Hx Substance Use: Yes Preferred Language: Lao Communication Ability: Effective Barrel Turner Required: No Beliefs That Will Affect Care: None marital status: Single Current Living Situation: Family Current Living Situation Comment: sister and kids Feels Safe at Home: Yes Assistive Devices: Glasses Results & Data Results & Data ([facility]) Vital Signs (Past 12 Hours) Vital Signs Temp Pulse Pulse Resp BP BP Pulse Ox 04/17/22 15:30 102 H 22 154/101 H 95 04/17/22 15:15 96 H 21 147/101 H 96 04/17/22 15:00 36.4 C L 97 H 21 162/107 H 96 04/17/22 14:50 97 H 21 151/108 H 96 04/17/22 14:40 104 H 23 141/111 H 95 04/17/22 14:30 104 H 20 150/110 H 96 04/17/22 14:20 101 H 21 161/104 H 95 04/17/22 14:10 101 H 21 160/102 H 95 04/17/22 14:00 100 H 20 165/104 H 94 04/17/22 13:50 93 H 19 156/101 H 94 04/17/22 13:40 89 18 158/111 H 94 04/17/22 13:30 90 19 149/99 H 93 04/17/22 13:20 86 18 146/106 H 92 04/17/22 13:10 80 21 152/100 H 92 04/17/22 13:00 81 18 157/100 H 92 04/17/22 12:50 79 17 157/105 H 93 04/17/22 12:40 78 16 172/108 H 93 04/17/22 12:30 84 18 156/103 H 91 04/17/22 12:20 87 17 152/98 H 91 04/17/22 12:10 90 20 133/105 H 90 04/17/22 12:00 82 16 146/100 H 89 L 04/17/22 11:50 86 16 141/97 H 86 L 04/17/22 11:40 86 17 159/119 H 91 04/17/22 11:30 91 H 18 161/103 H 88 L 04/17/22 11:22 94 H 18 154/110 H 88 L 04/17/22 11:11 87 15 163/106 H 93 04/17/22 11:06 89 16 168/108 H 94 04/17/22 10:56 88 17 147/99 H 97 04/17/22 10:47 36.5 C 95 H 12 155/104 H 93 04/17/22 07:52 36.7 C 67 18 119/82 98 04/17/22 07:50 36.8 C 65 16 132/85 100 O2 Del Method O2 Flow Rate 04/17/22 15:30 Oxymask 2 04/17/22 15:15 Oxymask 2 04/17/22 15:00 Oxymask 2 04/17/22 14:50 Oxymask 2 04/17/22 14:40 Oxymask 2 04/17/22 14:30 Oxymask 2 04/17/22 14:20 Oxymask 2 04/17/22 14:10 Oxymask 2 04/17/22 14:00 Oxymask 2 04/17/22 13:50 Oxymask 5 04/17/22 13:40 Oxymask 5 04/17/22 13:30 Oxymask 5 04/17/22 13:20 Oxymask 5 04/17/22 13:10 Oxymask 5 04/17/22 13:00 Oxymask 5 04/17/22 12:50 Oxymask 5 04/17/22 12:40 Oxymask 5 04/17/22 12:30 Oxymask 5 04/17/22 12:20 Oxymask 5 04/17/22 12:10 Oxymask 5 04/17/22 12:00 Oxymask 5 04/17/22 11:50 Nasal Cannula 4 04/17/22 11:40 Nasal Cannula 2 04/17/22 11:30 Nasal Cannula 2 04/17/22 11:22 Nasal Cannula 2 04/17/22 11:11 Oxymask 5 04/17/22 11:06 Oxymask 5 04/17/22 10:56 Oxymask 9 04/17/22 10:47 Oxymask 9 04/17/22 07:52 Room Air 04/17/22 07:50 Room Air Code Status & VTE Plan VTE Prophylaxis Plan VTE Prophylaxis will be ordered: No Reason for no VTE drug order: Treatment not indicated
[2022-04-18] MEDS: MoRPHine SULFATE 4 MG/ML 1 ML CARP\\VIAL IV PRN ×5 (00:08→09:44)
[2022-04-18] MEDS: KETOROLAC 30 MG/ML VIAL IV PRN (05:30)
[2022-04-18 07:40] LABS: Hematocrit (blood only) 38.4 % (34.1-44.9); Hemoglobin 12.2 g/dl (12.0-16.0); Mean Corpuscular Hemoglobin 26.3 pg (25.0-34.0); Mean Corpuscular Hgb Conc 31.8 g/dL (32.0-36.0); Mean Corpuscular Volume 82.8 fL (80.0-100.0); Mean Platelet Volume 10.2 fL (9.4-12.3); Platelet Count 211 K/uL (130-400); RDW Coefficient of Variation 14.6 % (11.5-14.5); RDW Standard Deviation 44.3 fL (36.4-46.3); Red Blood Count 4.64 M/uL (3.93-5.22); White Blood Count 8.94 K/ul (4.8-10.8)
[2022-04-18 08:02] LABS: Calcium 8.5 mg/dl (8.5-10.1); Potassium 4.1 mmol/L (3.5-5.1)
[2022-04-18 08:08] LABS: BUN Creatinine Ratio 18.4 (10-20); Creatinine Clr Calc Pharmacy 142.7 ml/min; Est GFR (African American) 119.5 ml/min; Est GFR (Non-African American) 103.1 ml/min
--- NOTE | 2022-04-18 10:19 | Oral/Maxillofacial Progress Nt ---
Date of Service April 18, 2022 Assessment & Plan Admission and Anticipated Discharge Date Admission Date: April 17, 2022 Subjective 24 hours post op OK for D/C after seen by medical Doing very well this AM Blood Pressure has stabilized back to normal baseline. Pain is controlled . Post -op X-RAYS show excellent position of the fracture reduction site. OK for discharge today Follow up planned for WednesdayApr 24 in my office Instructions for fracture care management reviewed, diet, pain control and oral care. Results & Data ([facility]) Vital Signs (Past 12 Hours) Vital Signs Temp Pulse Pulse Resp BP BP Pulse Ox 04/18/22 07:06 86 04/18/22 07:04 36.5 C 71 16 128/75 100 04/18/22 03:03 36.8 C 78 14 127/82 99 04/17/22 22:20 36.8 C 89 22 128/83 98 O2 Del Method O2 Flow Rate 04/18/22 07:06 04/18/22 07:04 Nasal Cannula 2 04/18/22 03:03 Nasal Cannula 2 04/17/22 22:20 Nasal Cannula 2 PG Care Time/CCT Total # of Minutes Spent Total Time Spent with Patient: Total time spent is greater than 50% in coordination of care (as documented) at patient's floor/unit and/or counseling patient: Coding Level of Care Code None
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
== END 2022-04-18 12:19 | disposition home or self-care (01) ==
LOC: 3N 17:04 → ED 17:04 → 3N 20:37
DX: S02.651A Fracture of angle of right mandible, initial encounter for closed fracture; S02.5XXA Fracture of tooth (traumatic), initial encounter for closed fracture